=== PATIENT | female | born 1945 | race Caucasian/White ===

== ENCOUNTER 2018-10-08 09:08 | Inpatient (IN) ==
[2018-10-08] MEDS ORDERED: IOPAMIDOL 100 ML BOTTLE IV ONE (09:09)
[2018-10-08] MEDS ORDERED: 0.9 % SODIUM CHLORIDE 1,000 ML IV ONE (09:29)
[2018-10-08] MEDS ORDERED: ONDANSETRON 4 MG/2 ML VIAL IV ONE (09:38)
[2018-10-08] MEDS ORDERED: HYDROmorphone 2 MG/ML VIAL IV PRN (09:52)
--- NOTE | 2018-10-08 09:52 | Emergency Department Note ---
Abdominal Pain HPI - General Chief Complaint: Abdominal Pain Stated Complaint: abd pain Time Seen by Provider: 10/08/18 09:37 Source: patient Mode of arrival: ambulatory Limitations: no limitations - History of Present Illness HPI Narrative: This patient began having some abdominal pain on Saturday and it became so caused some nausea and dry heaves. She has had slight diarrhea but has not been prominent. The pain has continued though is a little bit less now. She says the pain is constant but it does sound like it exacerbates at times. It is césar ewhat diffuse but perhaps more prominent in the pelvic region. Has never had any significant bowel problems in the past MD Complaint: abdominal pain Onset (ago): day(s) Consistency: constant Location: diffuse Severity: moderate Quality: cramping Radiation: none - Related Data Home Medications Medication Instructions Recorded Confirmed Aspirin [Lo-Dose Aspirin EC] 81 mg PO DAILY 10/08/18 10/08/18 Allergies Allergy/AdvReac Type Severity Reaction Status Date / Time hydromorphone [From Dilaudid] Allergy Unknown Nausea Verified 10/08/18 11:02 Review of Systems All systems ED: reviewed and negative except as stated. Abdominal Pain PMH - Past Medical History Medical history: Reports: no medical history Surgical history ED: Reports: hysterectomy - Social History Smoking status: Never smoker Physical Exam Limitations: no limitations General appearance: alert Head: atraumatic Eye: Present: normal appearance ENT: normal exam Neck: Present: normal inspection Chest: Present: normal inspection Respiratory: Present: normal lung sounds bilaterally Cardiovascular: Present: regular rate, normal rhythm, normal heart sounds Abdominal: Present: soft, tenderness, normal bowel sounds. Absent: distention Abdominal tenderness: Present: diffuse, moderate Neurological: Present: alert Psychiatric: Present: normal affect Skin: Present: warm, dry, intact Course Vital Signs Temperature 97.5 F 10/08/18 09:09 Pulse Rate 96 H 10/08/18 09:09 Respiratory Rate 16 10/08/18 09:09 Blood Pressure 135/79 10/08/18 09:09 Pulse Oximetry (%) 96 10/08/18 09:09 Temperature 97.5 F 10/08/18 09:09 Pulse Rate 81 10/08/18 11:34 Respiratory Rate 20 10/08/18 11:34 Blood Pressure 167/94 10/08/18 11:34 Pulse Oximetry (%) 97 10/08/18 11:34 Abdominal Pain - MDM Narrative Medical decision making narrative: Patient CT scan shows diverticulitis in the sigmoid region with a pelvic abscess that is loculated and will require drainage. She also has some inflammation in the ileum which is unexplained. No history of inflammatory bowel disease in the past. I discussed case with Dr. Oneill the general surgeon and she will be admitted to the hospital. - Lab Data Lab results reviewed: Yes I reviewed the patient's lab results. Result diagrams: 10/08/18 09:42 10/08/18 10:25 Lab Results 10/08/18 10/08/18 10/08/18 Range/Units 09:42 09:42 09:42 WBC 18.7 H (4.5-11.0) K/mcL RBC 4.97 (4.00-5.20) M/mcL Hgb 14.4 (12.0-15.0) g/dL Hct 45.0 (36.0-48.0) % MCV 90.6 (80.0-100.0) fL MCH 29.1 (26.0-34.0) pg MCHC 32.1 (31.0-36.0) g/dL RDW 12.7 (11.5-14.5) % Plt Count 226 (140-440) K/mcL MPV 10.5 H (7.4-10.4) fL Gran % 88.4 H (38.0-78.0) % Lymph % (Auto) 5.9 L (15.5-49.0) % [place] % (Auto) 5.3 (1.0-12.0) % Eos % (Auto) 0.1 (0.0-7.0) % Baso % (Auto) 0.3 (0.0-2.0) % Gran # 16.6 H (1.8-8.0) K/mcL Lymph # (Auto) 1.1 L (1.5-4.8) K/mcL [place] # (Auto) 1.0 H (0.1-0.9) K/mcL Eos # (Auto) 0 (0.0-0.7) K/mcL Baso # (Auto) 0.1 (0.0-0.3) K/mcL Sodium TNP Potassium TNP Chloride TNP Carbon Dioxide TNP Anion Gap TNP BUN TNP Creatinine TNP GFR Calculation TNP Glucose TNP Calcium TNP Total Bilirubin TNP AST TNP ALT TNP Alkaline Phosphatase TNP Total Protein TNP Albumin TNP Globulin TNP Albumin/Globulin Ratio TNP Lipase 10 (7-60) U/L Urine Color Urine Appearance Urine pH (5.0-9.0) Ur Specific [place] (1.000-1.035) Urine Protein (NEG) mg/dL Urine Glucose (UA) (NEG) mg/dL Urine Ketones (NEG) mg/dL Urine Occult Blood (<0.03) mg/dL Urine Nitrate (NEG) Urine Bilirubin (NEG) mg/dL Urine Urobilinogen (NEG) mg/dL Ur Leukocyte Esterase (NEG) /uL Urine RBC (0-1) /hpf Urine WBC (0-4) /hpf Ur Squamous Epith Cells (0-4) /hpf Urine Bacteria (0) /hpf Hyaline Casts (0-2) /lpf Urine Mucus (0) /hpf Ur Culture Indicated? 10/08/18 10/08/18 Range/Units 10:25 10:39 WBC (4.5-11.0) K/mcL RBC (4.00-5.20) M/mcL Hgb (12.0-15.0) g/dL Hct (36.0-48.0) % MCV (80.0-100.0) fL MCH (26.0-34.0) pg MCHC (31.0-36.0) g/dL RDW (11.5-14.5) % Plt Count (140-440) K/mcL MPV (7.4-10.4) fL Gran % (38.0-78.0) % Lymph % (Auto) (15.5-49.0) % [place] % (Auto) (1.0-12.0) % Eos % (Auto) (0.0-7.0) % Baso % (Auto) (0.0-2.0) % Gran # (1.8-8.0) K/mcL Lymph # (Auto) (1.5-4.8) K/mcL [place] # (Auto) (0.1-0.9) K/mcL Eos # (Auto) (0.0-0.7) K/mcL Baso # (Auto) (0.0-0.3) K/mcL Sodium 140 Potassium 3.5 Chloride 100 Carbon Dioxide 25 Anion Gap 15.0 BUN 26 H Creatinine 1.1 GFR Calculation 50 Glucose 119 H Calcium 9.7 Total Bilirubin 0.5 AST 10 ALT 10 Alkaline Phosphatase 81 Total Protein 7.7 Albumin 3.4 Globulin 4.3 H Albumin/Globulin Ratio 0.8 L Lipase (7-60) U/L Urine Color Yellow Urine Appearance Hazy Urine pH 5.0 (5.0-9.0) Ur Specific [place] 1.023 (1.000-1.035) Urine Protein 100 A (NEG) mg/dL Urine Glucose (UA) Negative (NEG) mg/dL Urine Ketones 20 A (NEG) mg/dL Urine Occult Blood 0.03 A (<0.03) mg/dL Urine Nitrate Neg (NEG) Urine Bilirubin Neg (NEG) mg/dL Urine Urobilinogen Neg (NEG) mg/dL Ur Leukocyte Esterase 25 A (NEG) /uL Urine RBC 1 (0-1) /hpf Urine WBC 13 H (0-4) /hpf Ur Squamous Epith Cells 14 H (0-4) /hpf Urine Bacteria 0 (0) /hpf Hyaline Casts 36 H (0-2) /lpf Urine Mucus Many A (0) /hpf Ur Culture Indicated? No - Radiology Data Radiology results reviewed: Yes I reviewed the patient's radiology results. Disposition Pt seen by DIRECTOR INDUSTRIAL RELATIONS/PA only: No Clinical Impression: Diverticulitis Disposition: Xfer As Inpt ([facility]) Condition: Good Time of Disposition: 12:02
[2018-10-08] MEDS ORDERED: KETOROLAC 30 MG/ML VIAL IV ONE (10:03)
[2018-10-08 10:08] LABS: Basophils # (Auto) 0.1 K/mcL (0.0-0.3); Basophils % (Auto) 0.3 % (0.0-2.0); Eosinophils # (Auto) 0 K/mcL (0.0-0.7); Eosinophils % (Auto) 0.1 % (0.0-7.0); Granulocytes % (Auto) 88.4 % (38.0-78.0); Lymphocytes # (Auto) 1.1 K/mcL (1.5-4.8); Lymphocytes % (Auto) 5.9 % (15.5-49.0); Mean Cell Volume 90.6 fL (80.0-100.0); Mean Corpuscular HGB Conc 32.1 g/dL (31.0-36.0); Monocytes % (Auto) 5.3 % (1.0-12.0); Platelet Count 226 K/mcL (140-440); RBC 4.97 M/mcL (4.00-5.20); Red Cell Distribution Width 12.7 % (11.5-14.5)
[2018-10-08 10:25] LABS: Lipase 10 U/L (7-60)
[2018-10-08 11:07] LABS: ALT/SGPT 10 U/l (0-40); Albumin 3.4 gm/dL (3.2-5.2); Albumin/Globulin Ratio 0.8 (1.0-2.3); Alkaline Phosphatase 81 U/L (39-117); Blood Urea Nitrogen 26 mg/dl (8-23)
[2018-10-08 11:37] LABS: Appearance,Urine HAZY; Bacteria,Urine 0 /hpf (0); Bilirubin,Urine NEG (NEG); Color,Urine YELLOW; Glucose,Urine (UA) NEGATIVE (NEG); Leukocyte Esterase,Urine 25 /uL (NEG); Mucus,Urine MANY /hpf (0); Protein,Urine 100 mg/dL (NEG); Specific Gravity,Urine 1.023 (1.000-1.035); Urine Blood 0.03 mg/dL (<0.03); Urine Hyaline Cast 36 /lpf (0-2); Urine RBC 1 /hpf (0-1); Urine Squamous Epithelial Cell 14 /hpf (0-4); Urine WBC 13 /hpf (0-4); Urobilinogen,Urine NEG (NEG)
[2018-10-08] MEDS ORDERED: metroNIDAZOLE 500 MG/100 ML BAG IV ONE (11:59)
[2018-10-08] MEDS ORDERED: LEVOFLOXACIN 750 MG/150 ML BAG IV ONE (11:59)
--- NOTE | 2018-10-08 12:06 | Cat Scan Report ---
CLINICAL INFORMATION: Diffuse abdominal pain COMPARISON: None. TECHNIQUE: Following oral contrast and the injection of intravenous contrast the patient was scanned during the portal venous phase from the diaphragm through the symphysis pubis. Sagittal and coronal reformats were created.. The radiation exposure was limited using dose reduction technology. FINDINGS: The lung bases are clear. The heart is normal in size. The liver is normal in size. There is a small calcified granuloma in the left lobe. The remainder the liver is normal. The spleen is normal in size and homogeneous. There are no gallstones and the bile ducts are nondilated. No mass or inflammation are present in the pancreas. There is a low-attenuation nodule in the right adrenal gland which measures 2.0 x 2.2 cm. It has intermediate density. I have no prior study for comparison. The left adrenal gland is normal. The kidneys are normal in size shape and contour and there is no kidney stone or hydronephrosis. The aorta is normal caliber. There are few scattered plaques along the wall of the distal aorta and iliac arteries. The oral contrast has passed through stomach and small bowel and colon to the rectum without obstruction. There are several diverticula in the sigmoid colon. The wall of the distal sigmoid colon is abnormally thickened and inflamed and there is stranding in the surrounding fat. Posterior to this inflamed segment of sigmoid colon there is a multiloculated complex fluid collection. The component posterior to the sigmoid measures 3.2 x 8.5 cm. There is a second component located more superiorly and laterally which measures 2.1 x 3.6 cm. There is a third component located more anteriorly to the right of midline in the pelvis which contains a few small bubbles of air and measures 2.9 x 3.6 cm. Superior and lateral to the inflamed sigmoid colon there is a segment of inflamed distal ileum. This is causing significant narrowing of the lumen but not obstruction. The terminal ileum is normal. This inflamed segment of ileum measures approximately 8 cm in length. There is no evidence of thrombosis or stenosis of the superior nor inferior mesenteric arteries or veins. No free intraperitoneal air is present. There is no extravasation of contrast from the lumen of the bowel. IMPRESSION: Diverticulitis of the distal sigmoid colon Inflammation of the distal ileum. This is not directly contiguous with the inflamed sigmoid colon and is suggestive of inflammatory bowel disease Multiloculated abscess deep in the pelvis with a large collection of fluid located posterior to the sigmoid colon Right adrenal mass. 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 Follow-up at a later date is suggested. Dr. Frausto was called with the results Interpreted and Authenticated by: Oswald Brenner 10/08/18
[2018-10-08] MEDS ORDERED: MEPERIDINE 25 MG/ML SYRINGE IV PRN (14:46)
[2018-10-08] MEDS ORDERED: ONDANSETRON 4 MG/2 ML VIAL IV PRN (14:46)
--- NOTE | 2018-10-08 15:01 | General Surg History&Physical ---
History of Present Illness Patient information: Note initiated : 10/08/18 at 2:58 pm Service Date, if different from initiated Date: [] Patient: Shilpa Soto a 73 y/o F admitted on 10/08/18 for Abd Pain. Chief Complaint: [abdominal pain nausea and vomiting] HPI: Ms. Soto is a 73 year old F admitted with perforated diverticulitis with abscess. The patient had onset of severe abdominal pain in her mid abdomen and hypogastric region on mid day on Saturday. This was followed by many episodes of nausea with vomiting which lasted for many hours. She continued to be symptomatic until she finally relented and came to the emergency room. She states that she took Pepto-Bismol but this was not effective. She had sweats but no fever or chills. The pain radiated through to her back. She did not have any bladder symptoms. Evaluation in the emergency room revealed white blood count of 18.7 BUN [address] shows acute diverticulitis with inflammatory changes involving the small bowel and colon. She also has 3 large collections of developing abscesses which are not amenable to percutaneous drainage. She is advised that she will need urgent sigmoid resection with drainage of the pelvic abscesses and colostomy. She agrees to this method of treatment. Review of Systems - Constitutional malaise, no fever(s) - EENT Nose, mouth and throat: no dizziness, no neck pain - Cardiovascular no chest pain with activity, no dyspnea on exertion, no paroxysmal nocturnal dyspnea, no rapid heart rate, no syncope - Respiratory no cough, no dyspnea on exertion, no wheezing - Gastrointestinal abdominal pain, bloating, change in stool character, diarrhea, early satiety, heartburn, loose stools, nausea, vomiting - Genitourinary Genitourinary: no dysuria, no nocturia, no urinary frequency, no urinary hesitancy, no urinary incontinence, no urinary urgency - Musculoskeletal no arthralgias, no back pain, no joint swelling, no neck pain - Integumentary no new lesions, no pruritus, no rash - Neurological no abnormal hearing, no confusion, no headache(s), no memory loss, no syncope, no vertigo - Psychiatric no anxiety, no depression - Endocrine no change in body appearance, no excessive sweating, no fatigue, no palpitations - Hematologic/Lymphatic no easy bleeding, no easy bruising, no lymphadenopathy - Allergic/Immunologic no tongue swelling, no throat swelling, no uticaria, no wheezing, no lip swelling Past History Past medical history: No chronic medical illnesses Past surgical history: Abdominal hysterectomy with bilateral salpingo-oophorectomy Past family history: Mother age 45 due to stroke Father due to an injury in Brother with diabetes mellitus and heart disease 2 sisters without medical illness Past social history: Never tobacco Habits alcohol Never drugs Medications and Allergies Home Medications Medication Instructions Recorded Confirmed Type Aspirin [Lo-Dose Aspirin EC] 81 mg PO DAILY 10/08/18 10/08/18 History Allergies Allergy/AdvReac Type Severity Reaction Status Date / Time hydromorphone [From Dilaudid] Allergy Unknown Nausea Verified 10/08/18 11:02 Exam Temp Pulse Resp BP Pulse Ox 98.0 F 77 16 135/79 100 10/08/18 13:14 10/08/18 13:14 10/08/18 13:14 10/08/18 13:14 10/08/18 13:14 - General physical appearance well developed, well nourished, no distress - Eyes PERRL, normal ocular movement - ENT normal pinna, normal nares, normal mucosa, no hearing loss, no congestion - Head Head exam IM: Present: atraumatic, normal inspection, normocephalic - Neck no masses, no bruits, trachea midline, no lymphadenopathy, no venous distension - Cardiovascular Cardiovascular exam IM: Present: normal rate and rhythm, RRR, +S1, +S2. Absent: irregular rhythm, JVD, systolic murmur - Respiratory normal expansion, normal respiratory effort, clear to auscultation - Abdomen Abdomen: Present: soft, non tender, tender (tenderness in the hypogastrium and both lower quadrants; moderate distention; active bowel sounds), bowel sounds Hernia: Present: none - Genitourinary Present: normal external genitalia - Integumentary Present: no rash, no growths, no abnormal pigmentation - Neurologic Present: normal coordination, normal sensation - Musculoskeletal Present: normal gait, normal posture - Psychiatric Present: oriented to time, oriented to person, oriented to place, speech is normal, memory intact Assessment and Plan (1) Diverticulitis of intestine with perforation and abscess with bleeding Zosyn 3.375 g IV every 6 Metronidazole 500 mg IV every 6 Sigmoid colectomy with colostomy on Saturday Status: Acute (2) Acute prerenal azotemia Vigorous IV hydration Status: Acute
[2018-10-08] MEDS: 0.9 % SODIUM CHLORIDE 1,000 ML IV SCH (16:18)
[2018-10-08] MEDS: PIPERACILLIN SODIUM/TAZOBACTAM 3.375 GM in DEXTROSE 5% IN WATER 50 ML IV SCH ×3 (16:19→23:26)
--- NOTE | 2018-10-08 16:19 | XRay Report ---
HISTORY: Preop FINDINGS: The lungs are clear. The right diaphragm is mildly elevated. The heart size, pulmonary vasculature, mediastinum and suzy are normal. Mild arthritis is present in the acromioclavicular joints, right worse than left. No free intra-abdominal air is present. IMPRESSION: No acute abnormality Interpreted and Authenticated by: Oswald Brenner 10/08/18
[2018-10-08] MEDS: PANTOPRAZOLE 40 MG VIAL IV SCH (18:48)
[2018-10-08] MEDS: metroNIDAZOLE 500 MG/100 ML BAG IV SCH (18:49)
[2018-10-09] MEDS: metroNIDAZOLE 500 MG/100 ML BAG IV SCH ×3 (00:09→13:40)
[2018-10-09] MEDS: 0.9 % SODIUM CHLORIDE 1,000 ML IV SCH ×4 (03:04→17:40)
[2018-10-09] MEDS: ACETAMINOPHEN 1,000 MG/100 ML BOTTLE IV PRN ×3 (03:08→20:27)
[2018-10-09 05:12] LABS: Basophils # (Auto) 0 K/mcL (0.0-0.3); Basophils % (Auto) 0 % (0.0-2.0); Eosinophils # (Auto) 0 K/mcL (0.0-0.7); Eosinophils % (Auto) 0.2 % (0.0-7.0); Granulocytes % (Auto) 85.4 % (38.0-78.0); Lymphocytes # (Auto) 0.9 K/mcL (1.5-4.8); Lymphocytes % (Auto) 6.6 % (15.5-49.0); Mean Cell Volume 90.9 fL (80.0-100.0); Mean Corpuscular HGB Conc 32.6 g/dL (31.0-36.0); Monocytes % (Auto) 7.8 % (1.0-12.0); Platelet Count 195 K/mcL (140-440); RBC 3.82 M/mcL (4.00-5.20); Red Cell Distribution Width 12.4 % (11.5-14.5)
[2018-10-09 05:33] LABS: ALT/SGPT 9 U/l (0-40); Albumin 2.7 gm/dL (3.2-5.2); Albumin/Globulin Ratio 0.8 (1.0-2.3); Alkaline Phosphatase 104 U/L (39-117); Bilirubin,Direct < 0.2 mg/dL (0.0-0.3); Blood Urea Nitrogen 18 mg/dl (8-23); Gamma Glutamyl Transpeptidase 15 U/L (5-36)
[2018-10-09] MEDS: PIPERACILLIN SODIUM/TAZOBACTAM 3.375 GM in DEXTROSE 5% IN WATER 50 ML IV SCH ×4 (05:34→18:34)
[2018-10-09] MEDS: PANTOPRAZOLE 40 MG VIAL IV SCH ×2 (08:47→15:59)
[2018-10-09] MEDS ORDERED: POTASSIUM CHLORIDE 40 MEQ in DEXTROSE 5% IN WATER 500 ML IV ONE (16:45)
--- NOTE | 2018-10-09 16:46 | General Surgery Progress Note ---
Subjective Patient reports: feels better, still having pain, pain is less, flatus, diarrhea, nausea, afebrile Narrative: Note initiated : 10/09/18 at 4:45 pm Service Date, if different from initiated Date: [] Patient: Shilpa Soto 73 y/o F admitted on 10/08/18 for Abd Pain. Chief Complaint: [] Objective Temp Pulse Resp BP Pulse Ox 98.8 F 81 20 154/79 98 10/09/18 15:43 10/09/18 03:10 10/09/18 15:43 10/09/18 15:43 10/09/18 15:43 - Additional Data Intake & Output - Last 24 hours: Intake & Output 10/07/18 10/08/18 10/09/18 10/10/18 05:59 05:59 05:59 05:59 Intake Total 2857 1390 Output Total 1350 450 Balance 1507 940 Weight 195 lb 195 lb - General physical appearance well developed, well nourished, no distress - Eyes PERRL, normal ocular movement - ENT normal pinna, normal nares, normal mucosa, no hearing loss, no congestion - Neck no masses, no bruits, trachea midline, no lymphadenopathy, no venous distension - Respiratory normal expansion, normal respiratory effort, clear to auscultation - Cardiovascular Cardiovascular exam: Present: normal rate and rhythm, RRR, +S1, +S2. Absent: JVD, tachycardia - Abdomen tender, distended (patient has mild abdominal distention; she has good active bowel sounds; there is tenderness to palpation in the hypogastrium in both lower quadrants) - Integumentary no rash, no growths, no abnormal pigmentation - Neurologic normal coordination, normal sensation - Musculoskeletal normal gait, normal posture - Psychiatric oriented to time, oriented to person, oriented to place, speech is normal, memory intact - Labs 10/09/18 03:55 10/09/18 03:55 Diabetes panel 10/09/18 Range/Units 03:55 Sodium 139 (133-145) mmol/L Potassium 3.3 (3.3-5.1) mmol/L Chloride 104 (96-108) mmol/L Carbon Dioxide 22 (22-30) mmol/L BUN 18 (8-23) mg/dl Creatinine 1.0 (0.6-1.1) mg/dl Glucose 92 (70-105) mg/dL Calcium 9.0 (8.6-10.4) mg/dl AST 13 (0-37) U/l ALT 9 (0-40) U/l Alkaline Phosphatase 104 (39-117) U/L Total Protein 6.3 (5.9-8.4) gm/dL Albumin 2.7 L (3.2-5.2) gm/dL Triglycerides 85 (<150) mg/dl Calcium panel 10/09/18 Range/Units 03:55 Calcium 9.0 (8.6-10.4) mg/dl Phosphorus 2.8 (2.7-4.5) mg/dL Albumin 2.7 L (3.2-5.2) gm/dL Pituitary panel 10/09/18 Range/Units 03:55 Sodium 139 (133-145) mmol/L Potassium 3.3 (3.3-5.1) mmol/L Chloride 104 (96-108) mmol/L Carbon Dioxide 22 (22-30) mmol/L BUN 18 (8-23) mg/dl Creatinine 1.0 (0.6-1.1) mg/dl Glucose 92 (70-105) mg/dL Calcium 9.0 (8.6-10.4) mg/dl Adrenal panel 10/09/18 Range/Units 03:55 Sodium 139 (133-145) mmol/L Potassium 3.3 (3.3-5.1) mmol/L Chloride 104 (96-108) mmol/L Carbon Dioxide 22 (22-30) mmol/L BUN 18 (8-23) mg/dl Creatinine 1.0 (0.6-1.1) mg/dl Glucose 92 (70-105) mg/dL Calcium 9.0 (8.6-10.4) mg/dl Total Bilirubin 0.4 (0.0-1.0) mg/dL AST 13 (0-37) U/l ALT 9 (0-40) U/l Alkaline Phosphatase 104 (39-117) U/L Total Protein 6.3 (5.9-8.4) gm/dL Albumin 2.7 L (3.2-5.2) gm/dL Assessment and Plan (1) Diverticulitis of intestine with perforation and abscess with bleeding Status: Acute Assessment and plan: Patient is clinically stable. She is counseled for sigmoid colectomy with colostomy tomorrow. Current Visit: Yes (2) Acute prerenal azotemia Status: Resolved Current Visit: Yes - Time Spent With Patient Total time spent is greater than 50% in coordination of care (as documented) at patient's floor/unit and/or counseling patient:
[2018-10-10] MEDS: PIPERACILLIN SODIUM/TAZOBACTAM 3.375 GM in DEXTROSE 5% IN WATER 50 ML IV SCH ×6 (00:16→23:17)
[2018-10-10] MEDS: 0.9 % SODIUM CHLORIDE 1,000 ML IV SCH ×6 (04:21→20:30)
[2018-10-10] MEDS: ACETAMINOPHEN 1,000 MG/100 ML BOTTLE IV PRN ×2 (05:09→18:06)
[2018-10-10 06:36] LABS: Basophils # (Auto) 0 K/mcL (0.0-0.3); Basophils % (Auto) 0 % (0.0-2.0); Eosinophils # (Auto) 0.1 K/mcL (0.0-0.7); Eosinophils % (Auto) 0.8 % (0.0-7.0); Granulocytes % (Auto) 81.4 % (38.0-78.0); Lymphocytes % (Auto) 8.8 % (15.5-49.0); Mean Cell Volume 90.8 fL (80.0-100.0); Mean Corpuscular HGB Conc 32.1 g/dL (31.0-36.0); Monocytes # (Auto) 1.1 K/mcL (0.1-0.9); Platelet Count 199 K/mcL (140-440); RBC 3.91 M/mcL (4.00-5.20)
[2018-10-10 07:02] LABS: ALT/SGPT 12 U/l (0-40); Albumin 2.7 gm/dL (3.2-5.2); Albumin/Globulin Ratio 0.8 (1.0-2.3); Alkaline Phosphatase 103 U/L (39-117); Bilirubin,Direct < 0.2 mg/dL (0.0-0.3); Blood Urea Nitrogen 11 mg/dl (8-23); Gamma Glutamyl Transpeptidase 24 U/L (5-36); Uric Acid 3.2 mg/dL (2.5-8.0)
[2018-10-10] MEDS: PANTOPRAZOLE 40 MG VIAL IV SCH ×2 (08:04→18:11)
[2018-10-10] MEDS ORDERED: PIPERACILLIN SODIUM/TAZOBACTAM 3.375 GM in DEXTROSE 5% IN WATER 50 ML IV ONE (08:30)
[2018-10-10] MEDS ORDERED: SCOPOLAMINE 1 PATCH PATCH TOPICAL ONE (08:34)
[2018-10-10] MEDS ORDERED: metroNIDAZOLE 500 MG/100 ML BAG IV ONE (08:43)
[2018-10-10] MEDS ORDERED: MIDAZOLAM 5 MG/5 ML VIAL IV ONE (09:00)
[2018-10-10] MEDS ORDERED: diphenhydrAMINE 50 MG/ML VIAL IV ONE (09:00)
[2018-10-10] MEDS ORDERED: KETAMINE 100 MG/ML ML IV ONE (09:00)
[2018-10-10] MEDS ORDERED: NEOSTIGMINE 1 MG/ML VIAL IV ONE (09:00)
[2018-10-10] MEDS ORDERED: LIDOCAINE HCL/PF 100 MG/5 ML SYRINGE IV ONE (09:00)
[2018-10-10] MEDS ORDERED: ROCURONIUM 10 MG/ML ML IV ONE (09:00)
[2018-10-10] MEDS ORDERED: DEXAMETHASONE 10 MG/ML VIAL IV ONE (09:00)
[2018-10-10] MEDS ORDERED: ESMOLOL 100 MG/10 ML VIAL IV ONE (09:00)
[2018-10-10] MEDS ORDERED: FAMOTIDINE/PF 20 MG/2 ML VIAL IV ONE (09:00)
[2018-10-10] MEDS ORDERED: fentaNYL 250 MCG/5 ML VIAL IV ONE (09:00)
[2018-10-10] MEDS ORDERED: GLYCOPYRROLATE 0.2 MG/ML VIAL IV ONE (09:00)
[2018-10-10] MEDS ORDERED: ONDANSETRON 4 MG/2 ML VIAL IV ONE (09:00)
[2018-10-10] MEDS ORDERED: PROPOFOL 200 MG/20 ML VIAL IV ONE (09:00)
[2018-10-10] MEDS ORDERED: hydrALAZINE 20 MG/ML VIAL IV ONE (09:00)
[2018-10-10] MEDS ORDERED: NALOXONE HCL 0.4 MG/ML VIAL IV PRN (10:02)
[2018-10-10] MEDS ORDERED: FLUMAZENIL 0.1 MG/ML ML IV PRN (10:02)
[2018-10-10] MEDS ORDERED: BENZOCAINE/MENTHOL 1 LOZENGE PO PRN (10:02)
[2018-10-10] MEDS ORDERED: ONDANSETRON 4 MG/2 ML VIAL IV PRN ×2 (10:02→13:25)
[2018-10-10] MEDS ORDERED: IPRATROPIUM/ALBUTEROL 3 ML AMPUL.NEB NEB PRN (10:02)
[2018-10-10] MEDS ORDERED: LACTATED RINGERS 250 ML IV PRN (10:02)
[2018-10-10] MEDS ORDERED: ACETAMINOPHEN 1,000 MG/100 ML BOTTLE IV ONE (10:02)
[2018-10-10] MEDS ORDERED: fentaNYL 100 MCG/2 ML VIAL IV PRN (10:02)
[2018-10-10] MEDS ORDERED: PROMETHAZINE 25 MG/ML VIAL IV PRN (10:02)
[2018-10-10] MEDS ORDERED: METHOCARBAMOL 1,000 MG/10 ML VIAL IV PRN (10:02)
[2018-10-10] MEDS ORDERED: MEPERIDINE 25 MG/ML SYRINGE IV PRN (10:02)
[2018-10-10] MEDS ORDERED: LACTATED RINGERS 1,000 ML IV SCH (10:15)
--- NOTE | 2018-10-10 11:45 | Brief Operative Note ---
Date of procedure: 10/10/18 Pre-op diagnosis: diverticulitis with multiple pelvic abscesses Post-op diagnosis: other (diverticuklitis with multiple pelvic abscess;acute appendicitis) Procedure: sigmoid colectomy and appendectomy with colostomy Grafts/Implants: No (mikal drain x2) Anesthesia: GETA Findings: major inflammation of sigmoid colon extending into pelvis with large volume abscesses x 3 with phlegmon involving colon small bowel bladder and rectum;appendix in middle of abscess cavity with possible perforation;unsure if inflammation was primary or secondary Complications: none Surgeon: Jakob Oneill Estimated blood loss (cc): 100 Specimens Removed/Pathology: other (sigmoid colon;appendix) Condition: stable Disposition: PACU
[2018-10-10] MEDS: 0.9 % SODIUM CHLORIDE 10 ML SYRINGE IV SCH ×3 (14:37→21:35)
[2018-10-10] MEDS: MEPERIDINE 25 MG/ML SYRINGE IV PRN ×3 (14:53→23:17)
[2018-10-10] MEDS: BENZOCAINE 1 SPRAY BOTTLE TOPICAL PRN ×2 (15:10→18:07)
[2018-10-11] MEDS: MEPERIDINE 25 MG/ML SYRINGE IV PRN ×5 (03:14→20:52)
[2018-10-11] MEDS: 0.9 % SODIUM CHLORIDE 1,000 ML IV SCH ×3 (03:14→19:16)
[2018-10-11] MEDS: PIPERACILLIN SODIUM/TAZOBACTAM 3.375 GM in DEXTROSE 5% IN WATER 50 ML IV SCH ×3 (05:15→17:47)
[2018-10-11 05:20] LABS: Basophils # (Auto) 0 K/mcL (0.0-0.3); Basophils % (Auto) 0 % (0.0-2.0); Eosinophils # (Auto) 0 K/mcL (0.0-0.7); Eosinophils % (Auto) 0.1 % (0.0-7.0); Granulocytes % (Auto) 83.2 % (38.0-78.0); Lymphocytes % (Auto) 6.9 % (15.5-49.0); Mean Corpuscular HGB Conc 32.5 g/dL (31.0-36.0); Monocytes # (Auto) 1.5 K/mcL (0.1-0.9); Monocytes % (Auto) 9.8 % (1.0-12.0); Platelet Count 209 K/mcL (140-440); RBC 3.96 M/mcL (4.00-5.20); Red Cell Distribution Width 12.8 % (11.5-14.5)
[2018-10-11 05:42] LABS: ALT/SGPT 11 U/l (0-40); Albumin 2.3 gm/dL (3.2-5.2); Albumin/Globulin Ratio 0.6 (1.0-2.3); Alkaline Phosphatase 81 U/L (39-117); Bilirubin,Direct < 0.2 mg/dL (0.0-0.3); Blood Urea Nitrogen 17 mg/dl (8-23); Gamma Glutamyl Transpeptidase 23 U/L (5-36); Uric Acid 3.7 mg/dL (2.5-8.0)
[2018-10-11] MEDS: 0.9 % SODIUM CHLORIDE 10 ML SYRINGE IV SCH ×2 (05:46→13:40)
[2018-10-11] MEDS: ACETAMINOPHEN 1,000 MG/100 ML BOTTLE IV PRN ×3 (05:46→19:31)
[2018-10-11] MEDS: PANTOPRAZOLE 40 MG VIAL IV SCH ×2 (07:50→17:46)
--- NOTE | 2018-10-11 12:38 | General Surgery Progress Note ---
Subjective Patient reports: feels better, pain is less, no flatus, afebrile Narrative: Note initiated : 10/11/18 at 12:36 pm Service Date, if different from initiated Date: [] Patient: Shilpa Soto 73 y/o F admitted on 10/08/18 for Abd Pain. Chief Complaint: [patient is doing well in the postoperative period. Her pain is well controlled. She denies nausea. White blood count 15,000; potassium 3.3] Objective Temp Pulse Resp BP Pulse Ox 98.5 F 84 20 153/76 93 10/11/18 12:17 10/11/18 04:00 10/11/18 12:17 10/11/18 12:17 10/11/18 12:17 - Additional Data Intake & Output - Last 24 hours: Intake & Output 10/09/18 10/10/18 10/11/18 10/12/18 05:59 05:59 05:59 05:59 Intake Total 2857 2310 5452 1000 Output Total 1350 2350 1675 Balance 1507 -40 3777 1000 Weight 195 lb 190 lb 6.4 oz 197 lb - General physical appearance well developed, well nourished, no distress - Eyes PERRL, normal ocular movement - ENT normal pinna, normal nares, normal mucosa, no hearing loss, no congestion - Neck no masses, no bruits, trachea midline, no lymphadenopathy, no venous distension - Respiratory normal expansion, normal respiratory effort, clear to auscultation - Cardiovascular Cardiovascular exam: Present: normal rate and rhythm, RRR, +S1, +S2. Absent: JVD, tachycardia - Abdomen tender (moderate incisional tenderness), bowel sounds (present), surgical scars (none), masses (none) - Integumentary no rash, no growths, no abnormal pigmentation - Neurologic normal coordination, normal sensation - Musculoskeletal normal gait, normal posture - Psychiatric oriented to time, oriented to person, oriented to place, speech is normal, memory intact - Labs 10/11/18 03:50 10/11/18 03:50 Diabetes panel 10/11/18 Range/Units 03:50 Sodium 140 (133-145) mmol/L Potassium 3.3 (3.3-5.1) mmol/L Chloride 106 (96-108) mmol/L Carbon Dioxide 21 L (22-30) mmol/L BUN 17 (8-23) mg/dl Creatinine 0.8 (0.6-1.1) mg/dl Glucose 114 H (70-105) mg/dL Calcium 8.7 (8.6-10.4) mg/dl AST 12 (0-37) U/l ALT 11 (0-40) U/l Alkaline Phosphatase 81 (39-117) U/L Total Protein 5.9 (5.9-8.4) gm/dL Albumin 2.3 L (3.2-5.2) gm/dL Triglycerides 82 (<150) mg/dl Calcium panel 10/11/18 Range/Units 03:50 Calcium 8.7 (8.6-10.4) mg/dl Phosphorus 3.6 (2.7-4.5) mg/dL Albumin 2.3 L (3.2-5.2) gm/dL Pituitary panel 10/11/18 Range/Units 03:50 Sodium 140 (133-145) mmol/L Potassium 3.3 (3.3-5.1) mmol/L Chloride 106 (96-108) mmol/L Carbon Dioxide 21 L (22-30) mmol/L BUN 17 (8-23) mg/dl Creatinine 0.8 (0.6-1.1) mg/dl Glucose 114 H (70-105) mg/dL Calcium 8.7 (8.6-10.4) mg/dl Adrenal panel 10/11/18 Range/Units 03:50 Sodium 140 (133-145) mmol/L Potassium 3.3 (3.3-5.1) mmol/L Chloride 106 (96-108) mmol/L Carbon Dioxide 21 L (22-30) mmol/L BUN 17 (8-23) mg/dl Creatinine 0.8 (0.6-1.1) mg/dl Glucose 114 H (70-105) mg/dL Calcium 8.7 (8.6-10.4) mg/dl Total Bilirubin 0.2 (0.0-1.0) mg/dL AST 12 (0-37) U/l ALT 11 (0-40) U/l Alkaline Phosphatase 81 (39-117) U/L Total Protein 5.9 (5.9-8.4) gm/dL Albumin 2.3 L (3.2-5.2) gm/dL Assessment and Plan (1) Diverticulitis of intestine with perforation and abscess with bleeding Status: Acute Assessment and plan: Patient is clinically stable. we'll continue present therapy Current Visit: Yes (2) Acute prerenal azotemia Status: Resolved Current Visit: Yes - Time Spent With Patient Total time spent is greater than 50% in coordination of care (as documented) at patient's floor/unit and/or counseling patient:
[2018-10-12] MEDS: MEPERIDINE 25 MG/ML SYRINGE IV PRN ×4 (03:31→21:46)
[2018-10-12] MEDS: 0.9 % SODIUM CHLORIDE 1,000 ML IV SCH ×5 (03:31→18:55)
[2018-10-12] MEDS: PIPERACILLIN SODIUM/TAZOBACTAM 3.375 GM in DEXTROSE 5% IN WATER 50 ML IV SCH ×5 (05:48→23:33)
[2018-10-12] MEDS: 0.9 % SODIUM CHLORIDE 10 ML SYRINGE IV SCH ×4 (06:04→21:47)
[2018-10-12] MEDS: PANTOPRAZOLE 40 MG VIAL IV SCH ×2 (07:33→16:59)
--- NOTE | 2018-10-12 14:09 | General Surgery Progress Note ---
Subjective Patient reports: feels better, pain is less, flatus, afebrile Narrative: Note initiated : 10/12/18 at 2:07 pm Service Date, if different from initiated Date: [] Patient: Shilpa Soto 73 y/o F admitted on 10/08/18 for Abd Pain. Chief Complaint: [patient continues to improve. She is afebrile. Her pain is controlled with present medication. She denies nausea. She has a small amount of gas in her stoma pouch. Her stoma is healthy. ARNEL drainage is serosanguineous] Objective Temp Pulse Resp BP Pulse Ox 98.5 F 86 20 171/81 92 10/12/18 11:56 10/12/18 03:43 10/12/18 11:56 10/12/18 11:56 10/12/18 11:56 - Additional Data Intake & Output - Last 24 hours: Intake & Output 10/10/18 10/11/18 10/12/18 10/13/18 05:59 05:59 05:59 05:59 Intake Total 2310 5452 3550 1050 Output Total 2350 1675 2025 1075 Balance -40 3777 1525 -25 Weight 190 lb 6.4 oz 197 lb 199 lb - General physical appearance well developed, well nourished, no distress, moderate pain - Eyes PERRL, normal ocular movement - ENT normal pinna, normal nares, normal mucosa, no hearing loss, no congestion - Neck no masses, no bruits, trachea midline, no lymphadenopathy, no venous distension - Respiratory normal expansion, normal respiratory effort, clear to auscultation - Cardiovascular Cardiovascular exam: Present: normal rate and rhythm, RRR, +S1, +S2. Absent: JVD, tachycardia - Abdomen tender (mild to moderate incisional tenderness; good active bowel sounds; incision is unremarkable; stoma is healthy), bowel sounds (present), surgical scars (none), masses (none) - Integumentary no rash, no growths, no abnormal pigmentation - Neurologic normal coordination, normal sensation - Musculoskeletal normal gait, normal posture - Psychiatric oriented to time, oriented to person, oriented to place, speech is normal, memory intact - Labs 10/11/18 03:50 10/11/18 03:50 Assessment and Plan (1) Diverticulitis of intestine with perforation and abscess with bleeding Status: Acute Assessment and plan: Patient is clinically stable. we'll continue present therapy Current Visit: Yes (2) Acute prerenal azotemia Status: Resolved Current Visit: Yes - Time Spent With Patient Total time spent is greater than 50% in coordination of care (as documented) at patient's floor/unit and/or counseling patient:
[2018-10-13] MEDS: 0.9 % SODIUM CHLORIDE 1,000 ML IV SCH ×4 (02:07→22:48)
[2018-10-13 05:35] LABS: Basophils # (Auto) 0 K/mcL (0.0-0.3); Basophils % (Auto) 0.2 % (0.0-2.0); Eosinophils # (Auto) 0.1 K/mcL (0.0-0.7); Granulocytes % (Auto) 80.1 % (38.0-78.0); Lymphocytes # (Auto) 1.4 K/mcL (1.5-4.8); Lymphocytes % (Auto) 10.5 % (15.5-49.0); Mean Cell Volume 89.7 fL (80.0-100.0); Mean Corpuscular HGB Conc 32.8 g/dL (31.0-36.0); Monocytes # (Auto) 1.1 K/mcL (0.1-0.9); Monocytes % (Auto) 8.2 % (1.0-12.0); Platelet Count 245 K/mcL (140-440); RBC 3.71 M/mcL (4.00-5.20); Red Cell Distribution Width 12.9 % (11.5-14.5)
[2018-10-13] MEDS: PIPERACILLIN SODIUM/TAZOBACTAM 3.375 GM in DEXTROSE 5% IN WATER 50 ML IV SCH ×4 (05:47→23:51)
[2018-10-13] MEDS: 0.9 % SODIUM CHLORIDE 10 ML SYRINGE IV SCH ×3 (05:48→22:49)
[2018-10-13 06:18] LABS: ALT/SGPT 13 U/l (0-40); Albumin 2.3 gm/dL (3.2-5.2); Albumin/Globulin Ratio 0.6 (1.0-2.3); Alkaline Phosphatase 66 U/L (39-117); Bilirubin,Direct < 0.2 mg/dL (0.0-0.3); Blood Urea Nitrogen 8 mg/dl (8-23); Gamma Glutamyl Transpeptidase 21 U/L (5-36); Uric Acid 3.1 mg/dL (2.5-8.0)
[2018-10-13] MEDS: PANTOPRAZOLE 40 MG VIAL IV SCH ×2 (07:03→17:33)
[2018-10-13] MEDS: POTASSIUM PHOSPHATE 40 MEQ in DEXTROSE 5% IN WATER 500 ML IV SCH ×2 (10:46→16:19)
[2018-10-14] MEDS: 0.9 % SODIUM CHLORIDE 1,000 ML IV SCH ×2 (03:11→10:41)
[2018-10-14] MEDS: 0.9 % SODIUM CHLORIDE 10 ML SYRINGE IV SCH ×3 (05:06→23:09)
[2018-10-14] MEDS: PIPERACILLIN SODIUM/TAZOBACTAM 3.375 GM in DEXTROSE 5% IN WATER 50 ML IV SCH ×3 (05:35→17:18)
[2018-10-14 06:12] LABS: Basophils # (Auto) 0 K/mcL (0.0-0.3); Basophils % (Auto) 0.1 % (0.0-2.0); Eosinophils # (Auto) 0.2 K/mcL (0.0-0.7); Eosinophils % (Auto) 1.6 % (0.0-7.0); Granulocytes % (Auto) 76.9 % (38.0-78.0); Lymphocytes # (Auto) 1.2 K/mcL (1.5-4.8); Lymphocytes % (Auto) 11.8 % (15.5-49.0); Mean Cell Volume 89.5 fL (80.0-100.0); Mean Corpuscular HGB Conc 32.3 g/dL (31.0-36.0); Monocytes % (Auto) 9.6 % (1.0-12.0); Platelet Count 281 K/mcL (140-440); Red Cell Distribution Width 12.9 % (11.5-14.5)
[2018-10-14 06:30] LABS: ALT/SGPT 17 U/l (0-40); Albumin 2.4 gm/dL (3.2-5.2); Albumin/Globulin Ratio 0.6 (1.0-2.3); Alkaline Phosphatase 65 U/L (39-117); Bilirubin,Direct < 0.2 mg/dL (0.0-0.3); Blood Urea Nitrogen 4 mg/dl (8-23); Gamma Glutamyl Transpeptidase 25 U/L (5-36); Uric Acid 2.2 mg/dL (2.5-8.0)
[2018-10-14] MEDS: PANTOPRAZOLE 40 MG VIAL IV SCH ×2 (07:15→17:27)
[2018-10-14] MEDS ORDERED: POTASSIUM PHOSPHATE 40 MEQ in DEXTROSE 5% IN WATER 500 ML IV ONE (13:00)
--- NOTE | 2018-10-14 18:51 | General Surgery Progress Note ---
Subjective Patient reports: feels better, pain is less, tolerating liquids well, flatus, bowel movement, afebrile Narrative: Note initiated : 10/14/18 at 6:51 pm Service Date, if different from initiated Date: [] Patient: Shilpa Soto 73 y/o F admitted on 10/08/18 for Abd Pain. Chief Complaint: [patient continues to do well. Her pain is better controlled. She had flatus and bowel movement through her stoma. White blood count 9.9; hemoglobin 11; potassium 3.] Objective Temp Pulse Resp BP Pulse Ox 98.5 F 82 24 H 157/83 95 10/14/18 16:00 10/14/18 16:00 10/14/18 16:00 10/14/18 16:00 10/14/18 16:00 - Additional Data Intake & Output - Last 24 hours: Intake & Output 10/12/18 10/13/18 10/14/18 10/15/18 05:59 05:59 05:59 05:59 Intake Total 3550 3580 4578.0909 1790 Output Total 5 3515 1297 103 Balance 1525 65 3281.0909 1687 Weight 199 lb 201 lb 8 oz 199 lb - General physical appearance well developed, well nourished, no distress - Eyes PERRL, normal ocular movement - ENT normal pinna, normal nares, normal mucosa, no hearing loss, no congestion - Neck no masses, no bruits, trachea midline, no lymphadenopathy, no venous distension - Respiratory normal expansion, normal respiratory effort, clear to auscultation - Cardiovascular Cardiovascular exam: Present: normal rate and rhythm, RRR, +S1, +S2. Absent: JVD, tachycardia - Abdomen tender (mild incisional tenderness; good active bowel sounds), bowel sounds (present), surgical scars ( stoma looks good; surgical incision is healing uneventfully; she has good active bowel sounds), masses (none) - Integumentary no rash, no growths, no abnormal pigmentation - Neurologic normal coordination, normal sensation - Musculoskeletal normal gait, normal posture - Psychiatric oriented to time, oriented to person, oriented to place, speech is normal, memory intact - Labs 10/15/18 09:20 10/15/18 09:20 Diabetes panel 10/14/18 Range/Units 04:48 Sodium 143 (133-145) mmol/L Potassium 3.0 L (3.3-5.1) mmol/L Chloride 104 (96-108) mmol/L Carbon Dioxide 28 (22-30) mmol/L BUN 4 L (8-23) mg/dl Creatinine 0.5 L (0.6-1.1) mg/dl Glucose 118 H (70-105) mg/dL Calcium 8.6 (8.6-10.4) mg/dl AST 20 (0-37) U/l ALT 17 (0-40) U/l Alkaline Phosphatase 65 (39-117) U/L Total Protein 6.1 (5.9-8.4) gm/dL Albumin 2.4 L (3.2-5.2) gm/dL Triglycerides 129 (<150) mg/dl Calcium panel 10/14/18 Range/Units 04:48 Calcium 8.6 (8.6-10.4) mg/dl Phosphorus 2.7 (2.7-4.5) mg/dL Albumin 2.4 L (3.2-5.2) gm/dL Pituitary panel 10/14/18 Range/Units 04:48 Sodium 143 (133-145) mmol/L Potassium 3.0 L (3.3-5.1) mmol/L Chloride 104 (96-108) mmol/L Carbon Dioxide 28 (22-30) mmol/L BUN 4 L (8-23) mg/dl Creatinine 0.5 L (0.6-1.1) mg/dl Glucose 118 H (70-105) mg/dL Calcium 8.6 (8.6-10.4) mg/dl Adrenal panel 10/14/18 Range/Units 04:48 Sodium 143 (133-145) mmol/L Potassium 3.0 L (3.3-5.1) mmol/L Chloride 104 (96-108) mmol/L Carbon Dioxide 28 (22-30) mmol/L BUN 4 L (8-23) mg/dl Creatinine 0.5 L (0.6-1.1) mg/dl Glucose 118 H (70-105) mg/dL Calcium 8.6 (8.6-10.4) mg/dl Total Bilirubin 0.3 (0.0-1.0) mg/dL AST 20 (0-37) U/l ALT 17 (0-40) U/l Alkaline Phosphatase 65 (39-117) U/L Total Protein 6.1 (5.9-8.4) gm/dL Albumin 2.4 L (3.2-5.2) gm/dL Assessment and Plan (1) Diverticulitis of intestine with perforation and abscess with bleeding Status: Acute Assessment and plan: Patient is clinically stable. we'll continue present therapy Current Visit: Yes (2) Acute prerenal azotemia Status: Resolved Current Visit: Yes - Time Spent With Patient Total time spent is greater than 50% in coordination of care (as documented) at patient's floor/unit and/or counseling patient:
--- NOTE | 2018-10-14 18:51 | General Surgery Progress Note ---
Subjective Patient reports: feels better, still having pain, pain is less, tolerating liquids well, flatus, bowel movement, afebrile Narrative: Note initiated : 10/14/18 at 6:51 pm Service Date, if different from initiated Date: [] Patient: Shilpa Soto 73 y/o F admitted on 10/08/18 for Abd Pain. Chief Complaint: [patient continues to improve daily basis. her lungs are clear. White blood count was decreased to 9.9.] Objective Temp Pulse Resp BP Pulse Ox 98.5 F 82 24 H 157/83 95 10/14/18 16:00 10/14/18 16:00 10/14/18 16:00 10/14/18 16:00 10/14/18 16:00 - Additional Data Intake & Output - Last 24 hours: Intake & Output 10/12/18 10/13/18 10/14/18 10/15/18 05:59 05:59 05:59 05:59 Intake Total 3550 3580 4578.0909 1790 Output Total 2025 3515 1297 103 Balance 1525 65 3281.0909 1687 Weight 199 lb 201 lb 8 oz 199 lb - General physical appearance well developed, well nourished, no distress - ENT normal pinna, normal nares, normal mucosa, no hearing loss, no congestion - Neck no masses, no bruits, trachea midline, no lymphadenopathy, no venous distension - Respiratory normal expansion, normal respiratory effort, clear to auscultation - Cardiovascular Cardiovascular exam: Present: normal rate and rhythm, RRR, +S1, +S2. Absent: JVD, tachycardia - Abdomen tender, distended (thank you) - Integumentary no rash, no growths, no abnormal pigmentation - Neurologic normal coordination, normal sensation - Musculoskeletal normal gait, normal posture - Psychiatric oriented to time, oriented to person, oriented to place, speech is normal, memory intact - Labs 10/15/18 09:20 10/17/18 06:06 Diabetes panel 10/14/18 Range/Units 04:48 Sodium 143 (133-145) mmol/L Potassium 3.0 L (3.3-5.1) mmol/L Chloride 104 (96-108) mmol/L Carbon Dioxide 28 (22-30) mmol/L BUN 4 L (8-23) mg/dl Creatinine 0.5 L (0.6-1.1) mg/dl Glucose 118 H (70-105) mg/dL Calcium 8.6 (8.6-10.4) mg/dl AST 20 (0-37) U/l ALT 17 (0-40) U/l Alkaline Phosphatase 65 (39-117) U/L Total Protein 6.1 (5.9-8.4) gm/dL Albumin 2.4 L (3.2-5.2) gm/dL Triglycerides 129 (<150) mg/dl Calcium panel 10/14/18 Range/Units 04:48 Calcium 8.6 (8.6-10.4) mg/dl Phosphorus 2.7 (2.7-4.5) mg/dL Albumin 2.4 L (3.2-5.2) gm/dL Pituitary panel 10/14/18 Range/Units 04:48 Sodium 143 (133-145) mmol/L Potassium 3.0 L (3.3-5.1) mmol/L Chloride 104 (96-108) mmol/L Carbon Dioxide 28 (22-30) mmol/L BUN 4 L (8-23) mg/dl Creatinine 0.5 L (0.6-1.1) mg/dl Glucose 118 H (70-105) mg/dL Calcium 8.6 (8.6-10.4) mg/dl Adrenal panel 10/14/18 Range/Units 04:48 Sodium 143 (133-145) mmol/L Potassium 3.0 L (3.3-5.1) mmol/L Chloride 104 (96-108) mmol/L Carbon Dioxide 28 (22-30) mmol/L BUN 4 L (8-23) mg/dl Creatinine 0.5 L (0.6-1.1) mg/dl Glucose 118 H (70-105) mg/dL Calcium 8.6 (8.6-10.4) mg/dl Total Bilirubin 0.3 (0.0-1.0) mg/dL AST 20 (0-37) U/l ALT 17 (0-40) U/l Alkaline Phosphatase 65 (39-117) U/L Total Protein 6.1 (5.9-8.4) gm/dL Albumin 2.4 L (3.2-5.2) gm/dL Assessment and Plan (1) Diverticulitis of intestine with perforation and abscess with bleeding Status: Acute Assessment and plan: Patient is clinically stable. we'll continue present therapy Current Visit: Yes (2) Acute prerenal azotemia Status: Resolved Current Visit: Yes - Time Spent With Patient Total time spent is greater than 50% in coordination of care (as documented) at patient's floor/unit and/or counseling patient:
[2018-10-14] MEDS: ACETAMINOPHEN 1,000 MG/100 ML BOTTLE IV PRN (23:08)
[2018-10-15] MEDS: PIPERACILLIN SODIUM/TAZOBACTAM 3.375 GM in DEXTROSE 5% IN WATER 50 ML IV SCH ×3 (00:38→11:26)
[2018-10-15] MEDS: 0.9 % SODIUM CHLORIDE 10 ML SYRINGE IV SCH ×3 (05:08→23:32)
[2018-10-15] MEDS: PANTOPRAZOLE 40 MG VIAL IV SCH ×2 (07:20→18:01)
[2018-10-15 09:54] LABS: Basophils # (Auto) 0 K/mcL (0.0-0.3); Basophils % (Auto) 0.1 % (0.0-2.0); Eosinophils # (Auto) 0.2 K/mcL (0.0-0.7); Eosinophils % (Auto) 1.7 % (0.0-7.0); Granulocytes % (Auto) 82.5 % (38.0-78.0); Lymphocytes % (Auto) 9.5 % (15.5-49.0); Mean Cell Volume 89.2 fL (80.0-100.0); Mean Corpuscular HGB Conc 32.4 g/dL (31.0-36.0); Monocytes # (Auto) 0.7 K/mcL (0.1-0.9); Monocytes % (Auto) 6.2 % (1.0-12.0); Platelet Count 342 K/mcL (140-440); RBC 4.22 M/mcL (4.00-5.20); Red Cell Distribution Width 13.1 % (11.5-14.5)
--- NOTE | 2018-10-15 10:02 | Surgical Pathology Report ---
HISTOLOGY SPECIMEN MICROSCOPIC DIAGNOSIS SPECIMEN A - APPENDIX, APPENDECTOMY: -- ACUTE APPENDICITIS WITH PERFORATION AND ACUTE SEROSITIS. SPECIMEN B - COLON, SIGMOID, PARTIAL COLECTOMY: -- DIVERTICULITIS WITH PERFORATION, ABSCESS, FIBROSIS AND SEROSITIS. -- ELEVEN BENIGN LYMPH NODES. -- VIABLE MARGINS OF RESECTION. -- NO MALIGNANCY IDENTIFIED. (RLF:adj) PROCEDURAL IMPRESSION Diverticulitis of intestine with perforation and abscess with bleeding. GROSS DESCRIPTION Specimen A: Received in formalin labeled appendix, is a portion of brito-purple tissue with white-brito surface exudate that measures 4.5 x 3 x 2 cm. At the proximal margin a tubular structure compatible with appendix is identified that measures 0.5 cm in diameter. This margin is inked black. Sectioning through the appendix reveals a region of possible perforation. Appendix is entirely submitted in seven cassettes with the possible perforated regions in A2. Specimen B: Received in formalin labeled sigmoid colon segment, is a partial colectomy specimen closed at both ends with staple lines. The segment measures 23 cm in length by 3.7 to 5.5 cm in diameter. The external serosal surface is brito-purple and dusky with brown-brito hemorrhagic regions and white-brito exudate present on both the serosal surface and the attached adipose tissue. Upon opening, the wall is firm, brito and mildly thickened, measuring 0.5 to 0.8 cm in thickness. The mucosal surface is brito and plicated. Multiple diverticula are identified without gross perforation. [employer] sections submitted as follows: B1 - margins inked; B2-B3 - sections of possible diverticula; B4 - background colonic mucosa showing serosal surface exudate; B5-B6 - six candidate nodes each. (RLF:adj) Electronically Signed by: Evita Mcgee M.D.
[2018-10-15 10:34] LABS: ALT/SGPT 25 U/l (0-40); Albumin 2.9 gm/dL (3.2-5.2); Albumin/Globulin Ratio 0.7 (1.0-2.3); Alkaline Phosphatase 70 U/L (39-117); Bilirubin,Direct < 0.2 mg/dL (0.0-0.3); Blood Urea Nitrogen 6 mg/dl (8-23); Gamma Glutamyl Transpeptidase 38 U/L (5-36); Uric Acid 2.1 mg/dL (2.5-8.0)
--- NOTE | 2018-10-15 13:10 | General Surgery Progress Note ---
Subjective Patient reports: feels better, pain is less, flatus, bowel movement, afebrile Narrative: Note initiated : 10/15/18 at 1:08 pm Service Date, if different from initiated Date: [] Patient: Shilpa Soto 73 y/o F admitted on 10/08/18 for Abd Pain. Chief Complaint: [patient continues to improve. Her pain is much improved. She has become much more mobile. Her blood pressure is elevated over the last 24 hours. Urine output is excellent. White blood count 10.8; hemoglobin 12.2; phosphorus 2.6] Objective Temp Pulse Resp BP Pulse Ox 97.8 F 85 16 156/81 96 10/15/18 11:15 10/15/18 11:15 10/15/18 11:15 10/15/18 11:15 10/15/18 11:15 - Additional Data Intake & Output - Last 24 hours: Intake & Output 10/13/18 10/14/18 10/15/18 10/16/18 05:59 05:59 05:59 05:59 Intake Total 3580 4578.0909 2440 360 Output Total 3515 1297 982 400 Balance 65 3281.0909 1458 -40 Weight 201 lb 8 oz 199 lb 195 lb - General physical appearance well developed, well nourished, no distress - Eyes PERRL, normal ocular movement - ENT normal pinna, normal nares, normal mucosa, no hearing loss, no congestion - Neck no masses, no bruits, trachea midline, no lymphadenopathy, no venous distension - Respiratory normal expansion, normal respiratory effort, clear to auscultation - Cardiovascular Cardiovascular exam: Present: normal rate and rhythm, RRR, +S1, +S2. Absent: JVD, tachycardia - Abdomen tender (mild tenderness noted; good active bowel sounds; stoma and incision looking good), bowel sounds (present), surgical scars (none), masses (none) - Integumentary no rash, no growths, no abnormal pigmentation - Neurologic normal coordination, normal sensation - Musculoskeletal normal gait, normal posture - Psychiatric oriented to time, oriented to person, oriented to place, speech is normal, memory intact - Labs 10/15/18 09:20 10/15/18 09:20 Diabetes panel 10/15/18 Range/Units 09:20 Sodium 141 (133-145) mmol/L Potassium 3.1 L (3.3-5.1) mmol/L Chloride 99 (96-108) mmol/L Carbon Dioxide 29 (22-30) mmol/L BUN 6 L (8-23) mg/dl Creatinine 0.6 (0.6-1.1) mg/dl Glucose 137 H (70-105) mg/dL Calcium 9.0 (8.6-10.4) mg/dl AST 27 (0-37) U/l ALT 25 (0-40) U/l Alkaline Phosphatase 70 (39-117) U/L Total Protein 7.0 (5.9-8.4) gm/dL Albumin 2.9 L (3.2-5.2) gm/dL Triglycerides 149 (<150) mg/dl Calcium panel 10/15/18 Range/Units 09:20 Calcium 9.0 (8.6-10.4) mg/dl Phosphorus 2.6 L (2.7-4.5) mg/dL Albumin 2.9 L (3.2-5.2) gm/dL Pituitary panel 10/15/18 Range/Units 09:20 Sodium 141 (133-145) mmol/L Potassium 3.1 L (3.3-5.1) mmol/L Chloride 99 (96-108) mmol/L Carbon Dioxide 29 (22-30) mmol/L BUN 6 L (8-23) mg/dl Creatinine 0.6 (0.6-1.1) mg/dl Glucose 137 H (70-105) mg/dL Calcium 9.0 (8.6-10.4) mg/dl Adrenal panel 10/15/18 Range/Units 09:20 Sodium 141 (133-145) mmol/L Potassium 3.1 L (3.3-5.1) mmol/L Chloride 99 (96-108) mmol/L Carbon Dioxide 29 (22-30) mmol/L BUN 6 L (8-23) mg/dl Creatinine 0.6 (0.6-1.1) mg/dl Glucose 137 H (70-105) mg/dL Calcium 9.0 (8.6-10.4) mg/dl Total Bilirubin 0.4 (0.0-1.0) mg/dL AST 27 (0-37) U/l ALT 25 (0-40) U/l Alkaline Phosphatase 70 (39-117) U/L Total Protein 7.0 (5.9-8.4) gm/dL Albumin 2.9 L (3.2-5.2) gm/dL Assessment and Plan (1) Diverticulitis of intestine with perforation and abscess with bleeding Status: Acute Assessment and plan: Patient is clinically stable. Amlodipine 10 mg daily Discontinue Zosyn Ciprofloxacin 400 mg IV every 12 hours Metronidazole 500 mg IV every 6 hours Current Visit: Yes (2) Acute prerenal azotemia Status: Resolved Current Visit: Yes - Time Spent With Patient Total time spent is greater than 50% in coordination of care (as documented) at patient's floor/unit and/or counseling patient:
[2018-10-15] MEDS: metroNIDAZOLE 500 MG/100 ML BAG IV SCH ×3 (14:19→23:32)
[2018-10-15] MEDS: CIPROFLOXACIN 400 MG/200 ML BAG IV SCH (15:09)
[2018-10-16] MEDS: CIPROFLOXACIN 400 MG/200 ML BAG IV SCH ×3 (00:42→19:14)
[2018-10-16] MEDS: metroNIDAZOLE 500 MG/100 ML BAG IV SCH ×3 (05:38→17:31)
[2018-10-16] MEDS: 0.9 % SODIUM CHLORIDE 10 ML SYRINGE IV SCH ×3 (05:39→20:18)
[2018-10-16] MEDS: PANTOPRAZOLE 40 MG VIAL IV SCH ×2 (07:23→17:31)
[2018-10-16] MEDS: amLODIPine 10 MG TABLET PO SCH (11:16)
[2018-10-16 16:20] LABS: ALT/SGPT 25 U/l (0-40); Albumin 2.8 gm/dL (3.2-5.2); Albumin/Globulin Ratio 0.8 (1.0-2.3); Alkaline Phosphatase 66 U/L (39-117); Bilirubin,Direct < 0.2 mg/dL (0.0-0.3); Blood Urea Nitrogen 7 mg/dl (8-23); Gamma Glutamyl Transpeptidase 35 U/L (5-36); Uric Acid 3.1 mg/dL (2.5-8.0)
--- NOTE | 2018-10-16 16:59 | General Surgery Progress Note ---
Subjective Patient reports: feels better, pain is less, tolerating a regular diet, flatus, bowel movement, diarrhea, afebrile Narrative: Note initiated : 10/16/18 at 4:57 pm Service Date, if different from initiated Date: [] Patient: Shilpa Soto 73 y/o F admitted on 10/08/18 for Abd Pain. Chief Complaint: [Patient continues to do well. She has been afebrile. She is having good bowel movements and is tolerating diet. Her stoma is functioning nicely. . Discussed with patient the need for rehabilitation and group home. We'll make plans for transfer to group home tomorrow on oral antibiotics. She was born in multiple aerobic and anaerobic organisms which can be adequately covered with ciprofloxacin and Flagyl.] Objective Temp Pulse Resp BP Pulse Ox 97.7 F 77 16 147/72 95 10/16/18 15:00 10/16/18 15:00 10/16/18 15:00 10/16/18 15:00 10/16/18 15:00 - Additional Data Intake & Output - Last 24 hours: Intake & Output 10/14/18 10/15/18 10/16/18 10/17/18 05:59 05:59 05:59 05:59 Intake Total 4578.0909 2440 1535 425 Output Total 2378 195 2427 1575 Balance 3281.0909 1458 -1488 -1150 Weight 199 lb 195 lb 194 lb 4.8 oz 194 lb 4.8 oz - General physical appearance well developed, well nourished, no distress - Eyes PERRL, normal ocular movement - ENT normal pinna, normal nares, normal mucosa, no hearing loss, no congestion - Neck no masses, no bruits, trachea midline, no lymphadenopathy, no venous distension - Respiratory normal expansion, normal respiratory effort, clear to auscultation - Cardiovascular Cardiovascular exam: Present: normal rate and rhythm, RRR, +S1, +S2. Absent: JVD, tachycardia - Abdomen tender (mild incisional tenderness; less abdominal distention; stoma looks good; good active bowel sounds) - Integumentary no rash, no growths, no abnormal pigmentation - Neurologic normal coordination, normal sensation - Musculoskeletal normal gait, normal posture - Psychiatric oriented to time, oriented to person, oriented to place, speech is normal, memory intact - Labs 10/15/18 09:20 10/16/18 14:06 Diabetes panel 10/16/18 Range/Units 14:06 Sodium 141 (133-145) mmol/L Potassium 3.1 L (3.3-5.1) mmol/L Chloride 102 (96-108) mmol/L Carbon Dioxide 28 (22-30) mmol/L BUN 7 L (8-23) mg/dl Creatinine 0.6 (0.6-1.1) mg/dl Glucose 121 H (70-105) mg/dL Calcium 8.8 (8.6-10.4) mg/dl AST 24 (0-37) U/l ALT 25 (0-40) U/l Alkaline Phosphatase 66 (39-117) U/L Total Protein 6.4 (5.9-8.4) gm/dL Albumin 2.8 L (3.2-5.2) gm/dL Triglycerides 130 (<150) mg/dl Calcium panel 10/16/18 Range/Units 14:06 Calcium 8.8 (8.6-10.4) mg/dl Phosphorus 2.2 L (2.7-4.5) mg/dL Albumin 2.8 L (3.2-5.2) gm/dL Pituitary panel 10/16/18 Range/Units 14:06 Sodium 141 (133-145) mmol/L Potassium 3.1 L (3.3-5.1) mmol/L Chloride 102 (96-108) mmol/L Carbon Dioxide 28 (22-30) mmol/L BUN 7 L (8-23) mg/dl Creatinine 0.6 (0.6-1.1) mg/dl Glucose 121 H (70-105) mg/dL Calcium 8.8 (8.6-10.4) mg/dl Adrenal panel 10/16/18 Range/Units 14:06 Sodium 141 (133-145) mmol/L Potassium 3.1 L (3.3-5.1) mmol/L Chloride 102 (96-108) mmol/L Carbon Dioxide 28 (22-30) mmol/L BUN 7 L (8-23) mg/dl Creatinine 0.6 (0.6-1.1) mg/dl Glucose 121 H (70-105) mg/dL Calcium 8.8 (8.6-10.4) mg/dl Total Bilirubin 0.2 (0.0-1.0) mg/dL AST 24 (0-37) U/l ALT 25 (0-40) U/l Alkaline Phosphatase 66 (39-117) U/L Total Protein 6.4 (5.9-8.4) gm/dL Albumin 2.8 L (3.2-5.2) gm/dL Assessment and Plan (1) Diverticulitis of intestine with perforation and abscess with bleeding Status: Acute Assessment and plan: Patient is clinically stable. Amlodipine 10 mg daily Discontinue Zosyn Ciprofloxacin 400 mg IV every 12 hours Metronidazole 500 mg IV every 6 hours Current Visit: Yes (2) Acute prerenal azotemia Status: Resolved Current Visit: Yes - Time Spent With Patient Total time spent is greater than 50% in coordination of care (as documented) at patient's floor/unit and/or counseling patient:
[2018-10-16] MEDS: POTASSIUM PHOSPHATE 40 MEQ in DEXTROSE 5% IN WATER 500 ML IV SCH (20:17)
[2018-10-17] MEDS: metroNIDAZOLE 500 MG/100 ML BAG IV SCH ×3 (00:15→13:11)
[2018-10-17] MEDS: POTASSIUM PHOSPHATE 40 MEQ in DEXTROSE 5% IN WATER 500 ML IV SCH (01:11)
[2018-10-17] MEDS: 0.9 % SODIUM CHLORIDE 10 ML SYRINGE IV SCH ×2 (05:18→14:13)
[2018-10-17] MEDS: amLODIPine 10 MG TABLET PO SCH (08:07)
[2018-10-17] MEDS: PANTOPRAZOLE 40 MG VIAL IV SCH (08:07)
[2018-10-17 08:16] LABS: ALT/SGPT 23 U/l (0-40); Albumin 2.7 gm/dL (3.2-5.2); Albumin/Globulin Ratio 0.8 (1.0-2.3); Alkaline Phosphatase 60 U/L (39-117); Bilirubin,Direct < 0.2 mg/dL (0.0-0.3); Blood Urea Nitrogen 6 mg/dl (8-23); Gamma Glutamyl Transpeptidase 34 U/L (5-36); Uric Acid 3.2 mg/dL (2.5-8.0)
[2018-10-17] MEDS: CIPROFLOXACIN 400 MG/200 ML BAG IV SCH (10:37)
--- NOTE | 2018-10-17 13:15 | Discharge Summary ---
Providers - Providers Patient information: Note initiated : 10/17/18 at 1:11 pm Service Date, if different from initiated Date: [] Patient: Shilpa Soto 73 y/o F admitted on 10/08/18 for Abd Pain. Chief Complaint: [] Date of admission: 11/08/18 Discharge date: 10/17/18 Attending physician: Jakob Oneill Hospitalization Hospital course: 73-year-old female presented to the emergency room after multiple day history of recurrent severe abdominal pain nausea vomiting fever. On evaluation she was noted to have a white blood count of 18,[address] of the abdomen showed advanced diverticulitis with inflammation of the terminal ileum and 3 large abscesses in the deep pelvis. She was treated with antibiotics and prepared for surgery. On 10 November she was explored and was found to have advanced diverticulitis involving primarily the sigmoid and 3 large at abscesses of the pelvis with one collection containing fred feculent material. The appendix was also in the middle of this collection and there was a suggestion that there was perforation of the appendix. It is not known if it was primary or secondary. Sigmoid colectomy with appendectomy was done with drainage of the pelvis. Cultures of the fluid grew out Escherichia coli and Klebsiella in the aerobic cultures and 3 anaerobes and anaerobic culture. She responded to antibiotics and has done well. Her white blood count was 529 September. She started having good stoma function the third postoperative day and was advanced on diet on the fourth postoperative day. She has done well since that time. She has some barry ctrolyte abnormalities were corrected with electrolyte replacement. The patient is now much stronger. She is more familiar with her stoma and her attitude towards his care has been very good. She is weaker however is anticipated that she will need rehabilitation skilled care for about 2 weeks until she can adequately perform her own activities of daily living and care for her stoma. Discharge diagnosis: acute diverticulitis with abscess Secondary discharge diagnosis: Acute appendicitis Reason for admission: perforated diverticulitis with abscess Procedures: Sigmoid colectomy with appendectomy and drainage of multiple pelvic abscesses October 04 Pertinent studies/significant findings: CT of abdomen and pelvis with contrast Complications: None Exam Temp Pulse Resp BP Pulse Ox 97.7 F 75 20 134/74 96 10/17/18 11:00 10/17/18 03:00 10/17/18 11:00 10/17/18 11:00 10/17/18 11:00 - General physical appearance well developed, well nourished, no distress - Eyes PERRL, normal ocular movement - ENT normal pinna, normal nares, normal mucosa, no hearing loss, no congestion - Head Head exam IM: Present: atraumatic, normocephalic - Neck no masses, no bruits, trachea midline, no lymphadenopathy, no venous distension - Cardiovascular Cardiovascular exam IM: Present: normal rate and rhythm - Respiratory normal expansion, normal respiratory effort, clear to percussion, clear to auscultation - Abdomen Abdomen: Present: soft, tender (mild incisional tenderness; good active bowel sounds; stoma looks good), bowel sounds Hernia: Present: none - Genitourinary Present: normal external genitalia - Integumentary Present: no rash, no growths, no abnormal pigmentation - Neurologic Present: normal coordination, normal sensation - Musculoskeletal Present: normal gait, normal posture - Psychiatric Present: oriented to time, oriented to person, oriented to place, speech is normal, memory intact Discharge Plan - Patient/Caregiver Discharge Instructions Activity: as per physical therapy, increase activity as tolerated Diet: Regular Diet Additional Instructions: Leave dressings in place until you return to the office EMPTY drains once twice daily as needed The proactive then carried for your stoma since it will be in place for 3 months Prescriptions: amLODIPine [Norvasc] 10 mg PO DAILY #30 tablet Ciprofloxacin [Cipro] 500 mg PO BID #40 tablet metroNIDAZOLE [Metronidazole] 500 mg PO Q8 #90 tablet - Follow up Plan Follow up with: Jakob Oneill MD [Physician] - 10/28/18 9:00 am () Disposition: Xfer Inpatient Rehab Fac Prognosis: Good Rehab Potential: Good I certify that the patient requires SNF services.: Yes Overall status at discharge: patient is not back to baseline Pending Studies Resuscitation Status Full Code Diet Regular Diet Start SatOct 15 132 Amlodipine Besylate (Norvasc) 10 mg PO DAILY CHINO Last Admin: 10/17/18 08:07 Dose: 10 mg Documented by: Admin: 10/16/18 11:16 Dose: 10 mg Documented by: WILL Benzocaine (Cetacaine) 1 spray TOPICAL PRN PRN PRN Reason: NG TUBE Last Admin: 10/10/18 18:07 Dose: 1 spray Documented by: Admin: 10/10/18 15:10 Dose: 1 spray Documented by: [email or web address] Acetaminophen (Ofirmev) 1,000 mg in 100 mls @ 200 mls/hr IV Q6HP PRN PRN Reason: Pain Last Infusion: 10/14/18 23:39 Dose: 0 mls/hr Documented by: Admin: 10/14/18 23:08 Dose: 200 mls/hr Documented by: Infusion: 10/11/18 20:35 Dose: 0 mls/hr Documented by: Admin: 10/11/18 19:31 Dose: 200 mls/hr Documented by: Infusion: 10/11/18 13:40 Dose: 0 mls/hr Documented by: [email or web address] Admin: 10/11/18 12:46 Dose: 200 mls/hr Documented by: Infusion: 10/11/18 06:16 Dose: 200 mls/hr Documented by: [email or web address] Admin: 10/11/18 05:46 Dose: 200 mls/hr Documented by: Infusion: 10/10/18 18:44 Dose: 0 mls/hr Documented by: Admin: 10/10/18 18:06 Dose: 200 mls/hr Documented by: EVITA Ciprofloxacin (Cipro) 400 mg in 200 mls @ 200 mls/hr IV Q12H CHINO Last Admin: 10/17/18 10:37 Dose: 200 mls/hr Documented by: Infusion: 10/16/18 20:30 Dose: 0 mls/hr Documented by: Admin: 10/16/18 19:14 Dose: 200 mls/hr Documented by: Infusion: 10/16/18 12:00 Dose: 0 mls/hr Documented by: Admin: 10/16/18 11:00 Dose: 200 mls/hr Documented by: Infusion: 10/16/18 01:42 Dose: 0 mls/hr Documented by: Admin: 10/16/18 00:42 Dose: 200 mls/hr Documented by: Infusion: 10/15/18 16:15 Dose: 0 mls/hr Documented by: [email or web address] Admin: 10/15/18 15:09 Dose: 200 mls/hr Documented by: HUGO Metronidazole (Flagyl) 500 mg in 100 mls @ 100 mls/hr IV Q6H CHINO Last Infusion: 10/17/18 10:37 Dose: 0 mls/hr Documented by: Admin: 10/17/18 05:18 Dose: 100 mls/hr Documented by: Infusion: 10/17/18 01:10 Dose: 0 mls/hr Documented by: Admin: 10/17/18 00:15 Dose: 100 mls/hr Documented by: Infusion: 10/16/18 19:30 Dose: 0 mls/hr Documented by: Infusion: 10/16/18 18:30 Dose: 0 mls/hr Documented by: Admin: 10/16/18 17:31 Dose: 100 mls/hr Documented by: Infusion: 10/16/18 15:12 Dose: 0 mls/hr Documented by: Admin: 10/16/18 12:15 Dose: 100 mls/hr Documented by: WILL Meperidine HCl (Demerol) 25 mg IV Q4HP PRN PRN Reason: PAIN LEVEL > 6 Last Admin: 10/12/18 21:46 Dose: 25 mg Documented by: Admin: 10/12/18 14:11 Dose: 25 mg Documented by: Admin: 10/12/18 09:24 Dose: 25 mg Documented by: [email or web address] Admin: 10/12/18 03:31 Dose: 25 mg Documented by: Admin: 10/11/18 20:52 Dose: 25 mg Documented by: Admin: 10/11/18 16:22 Dose: 25 mg Documented by: [email or web address] Admin: 10/11/18 11:57 Dose: 25 mg Documented by: Admin: 10/11/18 07:53 Dose: 25 mg Documented by: Admin: 10/11/18 03:14 Dose: 25 mg Documented by: Admin: 10/10/18 23:17 Dose: 25 mg Documented by: Admin: 10/10/18 19:14 Dose: 25 mg Documented by: Admin: 10/10/18 14:53 Dose: 25 mg Documented by: [email or web address] Pantoprazole Sodium (Protonix) 40 mg IV BIDAC [facility] Last Admin: 10/17/18 08:07 Dose: 40 mg Documented by: Admin: 10/16/18 17:31 Dose: 40 mg Documented by: Admin: 10/16/18 07:23 Dose: 40 mg Documented by: Admin: 10/15/18 18:01 Dose: 40 mg Documented by: [email or web address] Admin: 10/15/18 07:20 Dose: 40 mg Documented by: [email or web address] Admin: 10/14/18 17:27 Dose: 40 mg Documented by: [email or web address] Admin: 10/14/18 07:15 Dose: 40 mg Documented by: [email or web address] Admin: 10/13/18 17:33 Dose: 40 mg Documented by: [email or web address] Admin: 10/13/18 07:03 Dose: 40 mg Documented by: [email or web address] Admin: 10/12/18 16:59 Dose: 40 mg Documented by: [email or web address] Admin: 10/12/18 07:33 Dose: 40 mg Documented by: [email or web address] Admin: 10/11/18 17:46 Dose: 40 mg Documented by: [email or web address] Admin: 10/11/18 07:50 Dose: 40 mg Documented by: [facility] Admin: 10/10/18 18:11 Dose: 40 mg Documented by: [email or web address] Sodium Chloride (Saline Flush) 10 ml IV Q8 [facility] Admin: 10/17/18 05:18 Dose: 10 ml Documented by: Admin: 10/16/18 20:18 Dose: 10 ml Documented by: Admin: 10/16/18 17:31 Dose: 10 ml Documented by: Admin: 10/16/18 05:39 Dose: 10 ml Documented by: Admin: 10/15/18 23:32 Dose: 10 ml Documented by: Admin: 10/15/18 14:19 Dose: 10 ml Documented by: [email or web address] Admin: 10/15/18 05:08 Dose: 10 ml Documented by: Admin: 10/14/18 23:09 Dose: 10 ml Documented by: Admin: 10/14/18 12:51 Dose: 10 ml Documented by: [email or web address] Admin: 10/14/18 05:06 Dose: Not Given Documented by: Admin: 10/13/18 22:49 Dose: Not Given Documented by: Admin: 10/13/18 15:41 Dose: Not Given Documented by: [email or web address] Admin: 10/13/18 05:48 Dose: 10 ml Documented by: Admin: 10/12/18 21:47 Dose: 10 ml Documented by: Admin: 10/12/18 13:33 Dose: 10 ml Documented by: [email or web address] Admin: 10/12/18 06:04 Dose: Not Given Documented by: Admin: 10/12/18 00:00 Dose: 10 ml Documented by: Admin: 10/11/18 13:40 Dose: 10 ml Documented by: [email or web address] Admin: 10/11/18 05:46 Dose: 10 ml Documented by: Admin: 10/10/18 21:35 Dose: Not Given Documented by: Admin: 10/10/18 19:15 Dose: 10 ml Documented by: Admin: 10/10/18 14:37 Dose: Not Given Documented by: [email or web address] Shift Summary 10/17/18 03:30 Shift Summary by Christin Galindo AOx4. VSS on RA. OOB SBA FWW. Voiding without issue. ARNEL x2. Colostomy LLQ. Mepilex x2 to intact blister to R and L buttock. Midline incision with arpit with moderate amount of bloody drainage. Site cleaned and tegaderm changed. Potassium phosphate 40meq bag x2 ordered. Bag 2 of 2 currently infusing to be completed prior to shift change. Initialized on 10/17/18 03:30 - END OF NOTE
--- NOTE | 2018-10-21 16:39 | Operative Note ---
DATE OF OPERATION: 10/10/2018 PREOPERATIVE DIAGNOSIS: Diverticulitis with multiple pelvic abscesses. POSTOPERATIVE DIAGNOSIS: Diverticulitis with multiple pelvic abscesses and acute appendicitis. PROCEDURE: Sigmoid colectomy with colostomy and appendectomy. SURGEON: Jakob Oneill M.D. FINDINGS: Major inflammation of the sigmoid colon extending into the pelvis with large volume abscesses x3 with phlegmon involving the colon, small bowel, bladder and rectum. The appendix and cecum were in the middle of the abscess cavity also, and there appeared to be a perforation of the appendix. I could not determine if this perforation was due to extensive infection or if it was primary. DESCRIPTION OF PROCEDURE: Under general anesthesia, the patient's abdomen was prepped and draped in a sterile field. Timeout procedure was carried out as per protocol. Midline incision was made. The incision was started in the lower midline and extended above the umbilicus in the midepigastric midline. Upon entering the abdomen, a large volume of purulence was encountered. Using blunt dissection, the omentum, which was over the firm inflammatory mass, was bluntly dissected, and a large abscess cavity was encountered. This was irrigated and suctioned. Next, the sigmoid colon was followed distally into this very thick phlegmon. It was mobilized along its lateral border using primarily sharp dissection until it extended into the pelvis. Laterally along the rectosigmoid junction, a large abscess was encountered, and this abscess contained fecal material. Cultures were taken. It was then copiously irrigated with saline. Next, the rectosigmoid was from the bladder and another abscess was encountered. This was dissected free and irrigated. The rectosigmoid was followed down in the hollow of the sacrum and small abscess pockets were encountered. These were fractionated and dissected. Finally, the cecum was from this inflammatory mass, and at the base of the cecum the appendix was noted. The appendix was primarily involved in the inflammatory process, and the entire appendix was severely inflamed. There appeared to be a primary perforation of the appendix, but I was unsure if this was secondary or truly primary. The base of the appendix was dissected and was transected after stapling with two TA 30 staplers. The mesoappendix was clamped and divided and controlled with ligatures of 2-0 silk. The appendiceal stump was inverted and sutured with interrupted 2-0 silk. The rest of the cecum was inspected and was unremarkable. Being satisfied that all of the abscesses had been adequately drained, the sigmoid was dissected up to the level of the mid descending colon. It was then divided using a Contour stapler at about mid left colon. The rectosigmoid junction was divided above the peritoneal reflection with the Contour stapler. The mesocolon was dissected and divided using the LigaSure. The specimen was passed off. Next, an opening was made in the left lower quadrant fci between the umbilicus and anterior superior iliac spine. The skin was incised circumferentially. The subcutaneous fat and muscle were divided longitudinally. The opening was dilated and the end of the proximal sigmoid was pulled through this opening. More irrigation was carried out and the bowel wall was sutured to the peritoneum sutured circumferentially. The bowel was then sutured laterally to the peritoneum to prevent internal hernia and herniation. Sponge, needle, instrument and blade counts were verified as correct. Two ARNEL drains were placed in the depth of the pelvis and brought out in the right lower quadrant. Sponge, needle, and blade counts were verified as correct again. The fascia and peritoneum were closed with a running #1 Prolene. Subcutaneous tissue was irrigated with saline and then closed with 2-0 Monocryl. Skin was closed with arpit. The incision was covered and the stoma was matured with suture of the wall of the bowel to the anterior rectus fascia with interrupted 2-0 silk. The end of the bowel was then sutured to the dermis using a running 3-0 Vicryl. Stoma appliance was placed, as well as a large Tegaderm dressing was placed. The patient tolerated the procedure well. She was awakened, transferred to a bed, and taken to the postanesthetic care unit in satisfactory condition. LCS:rogers Job ID: [id number] Doc ID: [id number] Jakob Oneill M.D.
== END 2018-10-17 14:33 | DRG 329 ==
LOC: ED 09:08 → MEDSUR 13:41
PROVIDERS: ADMIT Family Medicine Adult Medicine; ATTEND Family Medicine Adult Medicine

== ENCOUNTER 2019-01-21 04:42 | Inpatient (IN) ==
--- NOTE | 2019-01-15 16:43 | XRay Report ---
INDICATION: Preoperative evaluation TECHNIQUE: PA and lateral upright chest x-ray COMPARISON: Previous examination dated 10/08/2018 FINDINGS:Lungs are negative. No parenchymal infiltrate or mass. No focal pulmonary parenchymal abnormality. Heart size and vascularity are normal. Daly and mediastinum are negative. There is no pleural fluid. IMPRESSION: Negative PA and lateral chest x-ray Interpreted and Authenticated by: Hernandez Hewitt 01/15/19
[2019-01-15 20:43] LABS: Basophils # (Auto) 0 K/mcL (0.0-0.3); Basophils % (Auto) 0.3 % (0.0-2.0); Eosinophils # (Auto) 0.1 K/mcL (0.0-0.7); Granulocytes % (Auto) 60.7 % (38.0-78.0); Lymphocytes # (Auto) 1.8 K/mcL (1.5-4.8); Lymphocytes % (Auto) 27.9 % (15.5-49.0); Mean Cell Volume 89.8 fL (80.0-100.0); Mean Corpuscular HGB Conc 33.3 g/dL (31.0-36.0); Monocytes # (Auto) 0.6 K/mcL (0.1-0.9); Monocytes % (Auto) 10.1 % (1.0-12.0); Platelet Count 229 K/mcL (140-440); RBC 4.53 M/mcL (4.00-5.20)
[2019-01-15 20:54] LABS: ALT/SGPT 26 U/l (0-40); Albumin 4.4 gm/dL (3.2-5.2); Albumin/Globulin Ratio 1.2 (1.0-2.3); Alkaline Phosphatase 112 U/L (39-117); Blood Urea Nitrogen 19 mg/dl (8-23)
[2019-01-21] MEDS ORDERED: metroNIDAZOLE 500 MG/100 ML BAG IV SCH (06:00)
[2019-01-21] MEDS ORDERED: cefOXitin 2 GM VIAL IV SCH (06:00)
[2019-01-21] MEDS ORDERED: ONDANSETRON 4 MG/2 ML VIAL IV ONE (08:10)
[2019-01-21] MEDS ORDERED: ROCURONIUM 10 MG/ML ML IV ONE (08:10)
[2019-01-21] MEDS ORDERED: DEXAMETHASONE 4 MG/ML VIAL IV ONE (08:10)
[2019-01-21] MEDS ORDERED: MIDAZOLAM 2 MG/2 ML VIAL IV ONE (08:10)
[2019-01-21] MEDS ORDERED: LIDOCAINE HCL/PF 100 MG/5 ML SYRINGE IV ONE (08:10)
[2019-01-21] MEDS ORDERED: fentaNYL 250 MCG/5 ML VIAL IV ONE (08:10)
[2019-01-21] MEDS ORDERED: PHENYLEPHRINE 10 MG/ML VIAL IV ONE (08:10)
[2019-01-21] MEDS ORDERED: KETAMINE 100 MG/ML ML IV ONE (08:10)
[2019-01-21] MEDS ORDERED: GLYCOPYRROLATE 0.2 MG/ML VIAL IV ONE (08:10)
[2019-01-21] MEDS ORDERED: PROPOFOL 200 MG/20 ML VIAL IV ONE (08:10)
[2019-01-21] MEDS ORDERED: SUGAMMADEX SODIUM 200 MG/2 ML VIAL IV ONE (08:10)
[2019-01-21] MEDS ORDERED: SCOPOLAMINE 1 PATCH PATCH TOPICAL ONE (08:14)
[2019-01-21] MEDS ORDERED: ePHEDrine 50 MG/ML AMPUL IV PRN (10:35)
[2019-01-21] MEDS ORDERED: ATROPINE SULFATE 0.4 MG/ML VIAL IV PRN (10:35)
[2019-01-21] MEDS ORDERED: IPRATROPIUM/ALBUTEROL 3 ML AMPUL.NEB NEB PRN (10:35)
[2019-01-21] MEDS ORDERED: METHOCARBAMOL 1,000 MG/10 ML VIAL IV PRN (10:35)
[2019-01-21] MEDS ORDERED: KETOROLAC 15 MG/ML VIAL IV PRN (10:35)
[2019-01-21] MEDS ORDERED: MEPERIDINE 25 MG/ML SYRINGE IV PRN (10:35)
[2019-01-21] MEDS ORDERED: PROMETHAZINE 25 MG/ML VIAL IV PRN (10:35)
[2019-01-21] MEDS ORDERED: fentaNYL 100 MCG/2 ML VIAL IV PRN (10:35)
[2019-01-21] MEDS ORDERED: METOPROLOL TARTRATE 5 MG/5 ML VIAL IV PRN (10:35)
[2019-01-21] MEDS ORDERED: FLUMAZENIL 0.1 MG/ML ML IV PRN (10:35)
[2019-01-21] MEDS ORDERED: NALOXONE HCL 0.4 MG/ML VIAL IV PRN (10:35)
[2019-01-21] MEDS ORDERED: ONDANSETRON 4 MG/2 ML VIAL IV PRN (10:35)
[2019-01-21] MEDS ORDERED: diphenhydrAMINE 50 MG/ML VIAL IV PRN (10:35)
[2019-01-21] MEDS ORDERED: LACTATED RINGERS 1,000 ML IV SCH (10:45)
[2019-01-21] MEDS ORDERED: cefOXitin 2 GM VIAL IV ONE (10:49)
[2019-01-21] MEDS ORDERED: metroNIDAZOLE 500 MG/100 ML BAG IV ONE (10:50)
--- NOTE | 2019-01-21 12:29 | Brief Operative Note ---
Date of procedure: 01/21/19 Pre-op diagnosis: colostomy status Post-op diagnosis: other (colostomy status) Procedure: colostomy closure Grafts/Implants: No ([id number]) Anesthesia: GETA Findings: healed inflammatory process Complications: none Surgeon: Jakob Oneill Specimens Removed/Pathology: none sent (colostomy end) Condition: stable Disposition: PACU
[2019-01-21] MEDS ORDERED: ACETAMINOPHEN 1,000 MG/100 ML BOTTLE IV PRN (12:38)
[2019-01-21] MEDS ORDERED: ACETAMINOPHEN 1,000 MG in PREMIX 1 BAG IV SCH (12:45)
[2019-01-21] MEDS: 0.9 % SODIUM CHLORIDE 1,000 ML IV SCH (14:00)
[2019-01-21] MEDS: 0.9 % SODIUM CHLORIDE 10 ML SYRINGE IV SCH ×2 (14:45→22:06)
[2019-01-21] MEDS: HYDROmorphone 2 MG/ML VIAL IV PRN ×3 (15:15→23:36)
[2019-01-21] MEDS: ACETAMINOPHEN 1,000 MG/100 ML BOTTLE IV SCH ×2 (15:23→19:26)
[2019-01-21] MEDS: PIPERACILLIN SODIUM/TAZOBACTAM 3.375 GM in DEXTROSE 5% IN WATER 50 ML IV SCH ×2 (18:12→23:17)
[2019-01-22] MEDS: ACETAMINOPHEN 1,000 MG/100 ML BOTTLE IV SCH ×4 (01:55→20:24)
[2019-01-22] MEDS: 0.9 % SODIUM CHLORIDE 1,000 ML IV SCH ×2 (02:01→16:25)
[2019-01-22] MEDS: HYDROmorphone 2 MG/ML VIAL IV PRN ×3 (04:54→17:05)
[2019-01-22] MEDS: PIPERACILLIN SODIUM/TAZOBACTAM 3.375 GM in DEXTROSE 5% IN WATER 50 ML IV SCH (04:55)
[2019-01-22] MEDS: 0.9 % SODIUM CHLORIDE 10 ML SYRINGE IV SCH ×3 (05:58→20:35)
--- NOTE | 2019-01-22 11:18 | General Surgery Progress Note ---
Subjective Patient reports: feels better, pain is less, no flatus, no bowel movement, afebrile Narrative: Note initiated : 01/22/19 at 11:16 am Service Date, if different from initiated Date: [] Patient: Shilpa Soto 74 y/o F admitted on 01/21/19 for Colostomy Takedown. Chief Complaint: [patient is doing well. She has moderate pain but she is advised to use her pain medication and to become more ambulatory. She has not had flatus or bowel movement. She denies nausea.] Objective Temp Pulse Resp BP Pulse Ox 98.7 F 71 16 129/69 97 01/22/19 08:00 01/22/19 04:00 01/22/19 08:00 01/22/19 08:00 01/22/19 08:00 - Additional Data Intake & Output - Last 24 hours: Intake & Output 01/20/19 01/21/19 01/22/19 01/23/19 05:59 05:59 05:59 05:59 Intake Total 8451 100 Output Total 1250 Balance 7201 100 Weight 188 lb 8 oz 190 lb 190 lb - General physical appearance well developed, well nourished, moderate distress, moderate pain - Eyes PERRL, normal ocular movement - ENT normal pinna, normal nares, normal mucosa, no hearing loss, no congestion - Neck no masses, no bruits, trachea midline, no lymphadenopathy, no venous distension - Respiratory normal expansion, normal respiratory effort, clear to auscultation - Cardiovascular Cardiovascular exam: Present: normal rate and rhythm, RRR, +S1, +S2. Absent: JVD, tachycardia - Abdomen tender (diffuse tenderness due to operative incisions; active bowel sounds; ARNEL drainage is serous) - Integumentary no rash, no growths, no abnormal pigmentation - Neurologic normal coordination, normal sensation - Musculoskeletal normal gait, normal posture - Psychiatric oriented to time, oriented to person, oriented to place, speech is normal, memory intact - Labs 01/15/19 16:28 01/15/19 16:28 Assessment and Plan (1) Status post colostomy takedown Status: Acute Assessment and plan: Encourage patient to ambulate. Check a.m. labs Current Visit: Yes - Time Spent With Patient Total time spent is greater than 50% in coordination of care (as documented) at patient's floor/unit and/or counseling patient:
[2019-01-23] MEDS: ACETAMINOPHEN 1,000 MG/100 ML BOTTLE IV SCH ×4 (00:52→19:04)
[2019-01-23 05:45] LABS: Basophils # (Auto) 0 K/mcL (0.0-0.3); Basophils % (Auto) 0.1 % (0.0-2.0); Eosinophils # (Auto) 0.1 K/mcL (0.0-0.7); Eosinophils % (Auto) 0.5 % (0.0-7.0); Lymphocytes # (Auto) 1.6 K/mcL (1.5-4.8); Lymphocytes % (Auto) 11.5 % (15.5-49.0); Mean Cell Volume 90.7 fL (80.0-100.0); Mean Corpuscular HGB Conc 33.3 g/dL (31.0-36.0); Monocytes # (Auto) 1.1 K/mcL (0.1-0.9); Monocytes % (Auto) 7.9 % (1.0-12.0); Platelet Count 192 K/mcL (140-440); RBC 3.77 M/mcL (4.00-5.20); Red Cell Distribution Width 14.1 % (11.5-14.5)
[2019-01-23] MEDS: 0.9 % SODIUM CHLORIDE 1,000 ML IV SCH ×2 (06:04→17:30)
[2019-01-23] MEDS: 0.9 % SODIUM CHLORIDE 10 ML SYRINGE IV SCH ×3 (06:05→21:02)
[2019-01-23 06:17] LABS: ALT/SGPT 17 U/l (0-40); Albumin 3.2 gm/dL (3.2-5.2); Alkaline Phosphatase 75 U/L (39-117); Bilirubin,Direct < 0.2 mg/dL (0.0-0.3); Blood Urea Nitrogen 9 mg/dl (8-23); Gamma Glutamyl Transpeptidase 14 U/L (5-36); Uric Acid 5.2 mg/dL (2.5-8.0)
[2019-01-23] MEDS: HYDROmorphone 2 MG/ML VIAL IV PRN ×2 (10:12→21:02)
--- NOTE | 2019-01-23 15:34 | General Surgery Progress Note ---
Subjective Patient reports: feels better, pain is less, no flatus, no bowel movement, afebrile Narrative: Note initiated : 01/23/19 at 3:33 pm Service Date, if different from initiated Date: [] Patient: Shilpa Soto 74 y/o F admitted on 01/21/19 for Colostomy Takedown. Chief Complaint: [Patient is doing well. She still has not had flatus yet. NG output is still significantly increased. She denies nausea.] White blood count is 13.5. Hemoglobin is 11.4. Phosphorus 2.2, magnesium 1.7, potassium 3.3. Objective Temp Pulse Resp BP Pulse Ox 98.6 F 80 18 130/68 94 01/23/19 15:20 01/23/19 03:47 01/23/19 15:20 01/23/19 15:20 01/23/19 15:20 - Additional Data Intake & Output - Last 24 hours: Intake & Output 01/21/19 01/22/19 01/23/19 01/24/19 05:59 05:59 05:59 05:59 Intake Total 8451 2780 380 Output Total 1250 3800 1535 Balance 7201 -1020 -1155 Weight 188 lb 8 oz 190 lb 188 lb 8 oz - General physical appearance well developed, well nourished, no distress - Eyes PERRL, normal ocular movement - ENT normal pinna, normal nares, normal mucosa, no hearing loss, no congestion - Neck no masses, no bruits, trachea midline, no lymphadenopathy, no venous distension - Respiratory normal expansion, normal respiratory effort, clear to auscultation - Cardiovascular Cardiovascular exam: Present: normal rate and rhythm, RRR, +S1, +S2. Absent: JVD, tachycardia - Abdomen tender (mild incisional tenderness; good active bowel sounds; incision looks good) - Integumentary no rash, no growths, no abnormal pigmentation - Neurologic normal coordination, normal sensation - Musculoskeletal normal gait, normal posture - Psychiatric oriented to time, oriented to person, oriented to place, speech is normal, memory intact - Labs 01/23/19 04:28 01/23/19 04:28 Diabetes panel 01/23/19 Range/Units 04:28 Sodium 140 (133-145) mmol/L Potassium 3.3 (3.3-5.1) mmol/L Chloride 105 (96-108) mmol/L Carbon Dioxide 24 (22-30) mmol/L BUN 9 (8-23) mg/dl Creatinine 0.6 (0.6-1.1) mg/dl Glucose 88 (70-105) mg/dL Calcium 8.7 (8.6-10.4) mg/dl AST 15 (0-37) U/l ALT 17 (0-40) U/l Alkaline Phosphatase 75 (39-117) U/L Total Protein 6.3 (5.9-8.4) gm/dL Albumin 3.2 (3.2-5.2) gm/dL Triglycerides 92 (<150) mg/dl Calcium panel 01/23/19 Range/Units 04:28 Calcium 8.7 (8.6-10.4) mg/dl Phosphorus 2.2 L (2.7-4.5) mg/dL Albumin 3.2 (3.2-5.2) gm/dL Pituitary panel 01/23/19 Range/Units 04:28 Sodium 140 (133-145) mmol/L Potassium 3.3 (3.3-5.1) mmol/L Chloride 105 (96-108) mmol/L Carbon Dioxide 24 (22-30) mmol/L BUN 9 (8-23) mg/dl Creatinine 0.6 (0.6-1.1) mg/dl Glucose 88 (70-105) mg/dL Calcium 8.7 (8.6-10.4) mg/dl Adrenal panel 01/23/19 Range/Units 04:28 Sodium 140 (133-145) mmol/L Potassium 3.3 (3.3-5.1) mmol/L Chloride 105 (96-108) mmol/L Carbon Dioxide 24 (22-30) mmol/L BUN 9 (8-23) mg/dl Creatinine 0.6 (0.6-1.1) mg/dl Glucose 88 (70-105) mg/dL Calcium 8.7 (8.6-10.4) mg/dl Total Bilirubin 0.5 (0.0-1.0) mg/dL AST 15 (0-37) U/l ALT 17 (0-40) U/l Alkaline Phosphatase 75 (39-117) U/L Total Protein 6.3 (5.9-8.4) gm/dL Albumin 3.2 (3.2-5.2) gm/dL Assessment and Plan (1) Status post colostomy takedown Status: Acute Assessment and plan: Encourage patient to ambulate. Check a.m. labs. Replace magnesium and potassium phosphate. Clamp nasogastric tube Current Visit: Yes - Time Spent With Patient Total time spent is greater than 50% in coordination of care (as documented) at patient's floor/unit and/or counseling patient:
[2019-01-23] MEDS ORDERED: MAGNESIUM SULFATE 32.48 MEQ in DEXTROSE 5% IN WATER 50 ML IV ONE (15:37)
[2019-01-23] MEDS ORDERED: MAGNESIUM SULFATE 4 GM/100 ML BAG IV ONE (16:00)
[2019-01-23] MEDS ORDERED: POTASSIUM PHOSPHATE 40 MEQ in DEXTROSE 5% IN WATER 500 ML IV ONE (16:00)
[2019-01-24] MEDS: 0.9 % SODIUM CHLORIDE 1,000 ML IV SCH ×3 (01:17→16:48)
[2019-01-24] MEDS: ACETAMINOPHEN 1,000 MG/100 ML BOTTLE IV SCH ×4 (01:41→19:53)
[2019-01-24 05:44] LABS: Basophils # (Auto) 0 K/mcL (0.0-0.3); Basophils % (Auto) 0.3 % (0.0-2.0); Eosinophils # (Auto) 0.2 K/mcL (0.0-0.7); Eosinophils % (Auto) 1.5 % (0.0-7.0); Granulocytes % (Auto) 79.1 % (38.0-78.0); Lymphocytes # (Auto) 1.2 K/mcL (1.5-4.8); Lymphocytes % (Auto) 12.1 % (15.5-49.0); Mean Cell Volume 91.3 fL (80.0-100.0); Monocytes # (Auto) 0.7 K/mcL (0.1-0.9); Platelet Count 199 K/mcL (140-440); RBC 3.69 M/mcL (4.00-5.20)
[2019-01-24 05:54] LABS: ALT/SGPT 13 U/l (0-40); Albumin 3.1 gm/dL (3.2-5.2); Albumin/Globulin Ratio 0.9 (1.0-2.3); Alkaline Phosphatase 115 U/L (39-117); Bilirubin,Direct < 0.2 mg/dL (0.0-0.3); Blood Urea Nitrogen 9 mg/dl (8-23); Gamma Glutamyl Transpeptidase 13 U/L (5-36); Uric Acid 5.1 mg/dL (2.5-8.0)
[2019-01-24] MEDS: 0.9 % SODIUM CHLORIDE 10 ML SYRINGE IV SCH ×2 (07:38→16:48)
--- NOTE | 2019-01-24 14:55 | General Surgery Progress Note ---
Subjective Patient reports: feels better, pain is less, flatus, no bowel movement, afebrile Narrative: Note initiated : 01/24/19 at 2:53 pm Service Date, if different from initiated Date: [] Patient: Shilpa Soto 74 y/o F admitted on 01/21/19 for Colostomy Takedown. Chief Complaint: [patient is doing well. She had some beginning of flatus. Last evening and has had more today. Nasogastric tube has been discontinued. She is otherwise stable.] Objective Temp Pulse Resp BP Pulse Ox 98.5 F 79 18 154/80 93 01/24/19 12:00 01/24/19 04:00 01/24/19 12:00 01/24/19 12:00 01/24/19 12:00 - Additional Data Intake & Output - Last 24 hours: Intake & Output 01/22/19 01/23/19 01/24/19 01/25/19 05:59 05:59 05:59 05:59 Intake Total 8451 2780 2189.0909 100 Output Total 1250 3800 2250 150 Balance 7201 -1020 -60.9091 -50 Weight 190 lb 188 lb 8 oz 186 lb - General physical appearance well developed, well nourished, no distress - Eyes PERRL, normal ocular movement - ENT normal pinna, normal nares, normal mucosa, no hearing loss, no congestion - Neck no masses, no bruits, trachea midline, no lymphadenopathy, no venous distension - Respiratory normal expansion, normal respiratory effort, clear to auscultation - Cardiovascular Cardiovascular exam: Present: normal rate and rhythm, RRR, +S1, +S2. Absent: JVD, tachycardia - Abdomen soft, non tender, bowel sounds (good active bowel sounds), surgical scars (. S urgical incision looks good), distended (. No distention noted) - Integumentary no rash, no growths, no abnormal pigmentation - Neurologic normal coordination, normal sensation - Musculoskeletal normal gait, normal posture - Psychiatric oriented to time, oriented to person, oriented to place, speech is normal, memory intact - Labs 01/24/19 04:23 01/24/19 04:23 Diabetes panel 01/24/19 Range/Units 04:23 Sodium 143 (133-145) mmol/L Potassium 3.4 (3.3-5.1) mmol/L Chloride 106 (96-108) mmol/L Carbon Dioxide 25 (22-30) mmol/L BUN 9 (8-23) mg/dl Creatinine 0.5 L (0.6-1.1) mg/dl Glucose 105 (70-105) mg/dL Calcium 8.4 L (8.6-10.4) mg/dl AST 11 (0-37) U/l ALT 13 (0-40) U/l Alkaline Phosphatase 115 (39-117) U/L Total Protein 6.6 (5.9-8.4) gm/dL Albumin 3.1 L (3.2-5.2) gm/dL Triglycerides 107 (<150) mg/dl Calcium panel 01/24/19 Range/Units 04:23 Calcium 8.4 L (8.6-10.4) mg/dl Phosphorus 2.4 L (2.7-4.5) mg/dL Albumin 3.1 L (3.2-5.2) gm/dL Pituitary panel 01/24/19 Range/Units 04:23 Sodium 143 (133-145) mmol/L Potassium 3.4 (3.3-5.1) mmol/L Chloride 106 (96-108) mmol/L Carbon Dioxide 25 (22-30) mmol/L BUN 9 (8-23) mg/dl Creatinine 0.5 L (0.6-1.1) mg/dl Glucose 105 (70-105) mg/dL Calcium 8.4 L (8.6-10.4) mg/dl Adrenal panel 01/24/19 Range/Units 04:23 Sodium 143 (133-145) mmol/L Potassium 3.4 (3.3-5.1) mmol/L Chloride 106 (96-108) mmol/L Carbon Dioxide 25 (22-30) mmol/L BUN 9 (8-23) mg/dl Creatinine 0.5 L (0.6-1.1) mg/dl Glucose 105 (70-105) mg/dL Calcium 8.4 L (8.6-10.4) mg/dl Total Bilirubin 0.3 (0.0-1.0) mg/dL AST 11 (0-37) U/l ALT 13 (0-40) U/l Alkaline Phosphatase 115 (39-117) U/L Total Protein 6.6 (5.9-8.4) gm/dL Albumin 3.1 L (3.2-5.2) gm/dL Assessment and Plan (1) Status post colostomy takedown Status: Acute Assessment and plan: Encourage patient to ambulate. Check a.m. labs. Replace magnesium and potassium phosphate. Discontinue nasogastric tube. Liquid diet Current Visit: Yes - Time Spent With Patient Total time spent is greater than 50% in coordination of care (as documented) at patient's floor/unit and/or counseling patient:
[2019-01-25] MEDS: 0.9 % SODIUM CHLORIDE 10 ML SYRINGE IV SCH ×4 (00:06→20:55)
[2019-01-25] MEDS: ACETAMINOPHEN 1,000 MG/100 ML BOTTLE IV SCH ×4 (01:39→20:50)
[2019-01-25] MEDS: 0.9 % SODIUM CHLORIDE 1,000 ML IV SCH ×2 (01:40→09:53)
--- NOTE | 2019-01-25 10:36 | General Surgery Progress Note ---
Subjective Patient reports: feels better, pain is less, tolerating liquids well, flatus, bowel movement, afebrile Narrative: Note initiated : 01/25/19 at 10:34 am Service Date, if different from initiated Date: [] Patient: Shilpa Soto 74 y/o F admitted on 01/21/19 for Colostomy Takedown. Chief Complaint: [patient is doing well. She had bowel movements . Last night and had a large bowel movement today. She is having copious passage of flatus. She denies nausea. She has been afebrile.] Objective Temp Pulse Resp BP Pulse Ox 97.9 F 74 16 185/88 96 01/25/19 08:00 01/25/19 04:00 01/25/19 08:00 01/25/19 08:00 01/25/19 08:00 - Additional Data Intake & Output - Last 24 hours: Intake & Output 01/23/19 01/24/19 01/25/19 01/26/19 05:59 05:59 05:59 05:59 Intake Total 2780 2189.0909 2840 1700 Output Total 3800 2250 1630 430 Balance -1020 -60.9091 1210 1270 Weight 188 lb 8 oz 186 lb 184 lb - General physical appearance well developed, well nourished, no distress - Eyes PERRL, normal ocular movement - ENT normal pinna, normal nares, normal mucosa, no hearing loss, no congestion - Neck no masses, no bruits, trachea midline, no lymphadenopathy, no venous distension - Respiratory normal expansion, normal respiratory effort, clear to auscultation - Cardiovascular Cardiovascular exam: Present: normal rate and rhythm, RRR, +S1, +S2. Absent: JVD, tachycardia - Abdomen soft, non tender, bowel sounds (with active bowel sounds), surgical scars (. Incision is well-healed), distended (. No distention noted) - Integumentary no rash, no growths, no abnormal pigmentation - Neurologic normal coordination (. Regardless of what is), normal sensation - Musculoskeletal normal gait, normal posture - Psychiatric oriented to time, oriented to person, oriented to place, speech is normal, memory intact - Labs 01/24/19 04:23 01/24/19 04:23 Assessment and Plan (1) Status post colostomy takedown Status: Acute Assessment and plan: Advanced diet. saline lock IV. Discontinue ARNEL drain and change Tegaderm dressing. Possible discharge home tomorrow Current Visit: Yes - Time Spent With Patient Total time spent is greater than 50% in coordination of care (as documented) at patient's floor/unit and/or counseling patient:
[2019-01-26] MEDS: ACETAMINOPHEN 1,000 MG/100 ML BOTTLE IV SCH ×3 (01:11→15:02)
[2019-01-26 05:12] LABS: Basophils # (Auto) 0 K/mcL (0.0-0.3); Basophils % (Auto) 0.2 % (0.0-2.0); Eosinophils # (Auto) 0.2 K/mcL (0.0-0.7); Eosinophils % (Auto) 3.1 % (0.0-7.0); Granulocytes % (Auto) 67.4 % (38.0-78.0); Lymphocytes # (Auto) 1.3 K/mcL (1.5-4.8); Lymphocytes % (Auto) 18.9 % (15.5-49.0); Mean Cell Volume 90.2 fL (80.0-100.0); Mean Corpuscular HGB Conc 33.1 g/dL (31.0-36.0); Monocytes # (Auto) 0.7 K/mcL (0.1-0.9); Monocytes % (Auto) 10.4 % (1.0-12.0); Platelet Count 246 K/mcL (140-440); RBC 3.67 M/mcL (4.00-5.20); Red Cell Distribution Width 13.6 % (11.5-14.5)
[2019-01-26] MEDS: 0.9 % SODIUM CHLORIDE 10 ML SYRINGE IV SCH ×2 (05:36→15:03)
--- NOTE | 2019-01-26 17:09 | Discharge Summary ---
Providers - Providers Patient information: Note initiated : 01/26/19 at 5:08 pm Service Date, if different from initiated Date: [] Patient: Shilpa Soto 74 y/o F admitted on 01/21/19 for Colostomy Takedown. Chief Complaint: [] Date of admission: 01/21/19 Discharge date: 01/26/19 Attending physician: Jakob Oneill Hospitalization Hospital course: 74-year-old female who is status post colostomy closure on 21 January. The patient has been followed and has progressed very well. She started having flatus on the third day in her diet has been advanced. She is now tolerating a soft diet and is having regular bowel movements and flatus. Her incisions are healing uneventfully. She has no complaints and is stable for discharge Discharge diagnosis: colostomy status Reason for admission: colostomy takedown Procedures: Colostomy takedown Pertinent studies/significant findings: None Complications: None Exam Temp Pulse Resp BP Pulse Ox 98.4 F 69 16 142/82 94 01/26/19 15:03 01/26/19 03:40 01/26/19 15:03 01/26/19 15:03 01/26/19 15:03 - General physical appearance well developed, well nourished, no distress - Eyes PERRL, normal ocular movement - ENT normal pinna, normal nares, normal mucosa, no hearing loss, no congestion - Head Head exam IM: Present: atraumatic, normocephalic - Neck no masses, no bruits, trachea midline, no lymphadenopathy, no venous distension - Cardiovascular Cardiovascular exam IM: Present: normal rate and rhythm - Respiratory normal expansion, normal respiratory effort, clear to percussion, clear to auscultation - Abdomen Abdomen: Present: soft, tender (minimal incisional tenderness), bowel sounds, surgical scars (midline incision and stoma site healing uneventfully) Hernia: Present: none - Genitourinary Present: normal external genitalia - Integumentary Present: no rash, no growths, no abnormal pigmentation - Neurologic Present: normal coordination, normal sensation - Musculoskeletal Present: normal gait, normal posture - Psychiatric Present: oriented to time, oriented to person, oriented to place, speech is normal, memory intact Discharge Plan - Patient/Caregiver Discharge Instructions Activity: increase activity as tolerated, other (no lifting over 20 pounds) Diet: Regular Diet Additional Instructions: Leave Tegaderm in place until you return to the office - Follow up Plan Follow up with: Jakob Oneill MD [Physician] - 02/05/19 11:15 am Disposition: Home, Self-Care Prognosis: Good Rehab Potential: Good I certify that the patient requires SNF services.: No Overall status at discharge: patient is progressing back to baseline Pending Studies Resuscitation Status Full Code Diet Full Liquid Diet Start Sun January 25 1016 Hydromorphone HCl (Dilaudid) 1 mg IV Q2HP PRN PRN Reason: PAIN LEVEL > 6 Last Admin: 01/23/19 21:02 Dose: 1 mg Documented by: Admin: 01/23/19 10:12 Dose: 1 mg Documented by: [email or web address] Admin: 01/22/19 17:05 Dose: 1 mg Documented by: Admin: 01/22/19 12:12 Dose: 1 mg Documented by: Admin: 01/22/19 04:54 Dose: 1 mg Documented by: Admin: 01/21/19 23:36 Dose: 1 mg Documented by: Admin: 01/21/19 18:30 Dose: 1 mg Documented by: Admin: 01/21/19 15:15 Dose: 1 mg Documented by: WILL Acetaminophen ([facility]) 1,000 mg in 100 mls @ 200 mls/hr IV Q6H CHINO Last Admin: 01/26/19 15:02 Dose: 200 mls/hr Documented by: [email or web address] Infusion: 01/26/19 15:02 Dose: 0 mls/hr Documented by: [email or web address] Infusion: 01/26/19 07:25 Dose: 0 mls/hr Documented by: [email or web address] Admin: 01/26/19 07:22 Dose: 200 mls/hr Documented by: [email or web address] Infusion: 01/26/19 01:50 Dose: 0 mls/hr Documented by: Admin: 01/26/19 01:11 Dose: 200 mls/hr Documented by: Infusion: 01/25/19 21:30 Dose: 0 mls/hr Documented by: Admin: 01/25/19 20:50 Dose: 200 mls/hr Documented by: Infusion: 01/25/19 12:50 Dose: 200 mls/hr Documented by: [email or web address] Admin: 01/25/19 12:20 Dose: 200 mls/hr Documented by: [email or web address] Infusion: 01/25/19 07:39 Dose: 200 mls/hr Documented by: [email or web address] Admin: 01/25/19 07:09 Dose: 200 mls/hr Documented by: [email or web address] Infusion: 01/25/19 02:10 Dose: 0 mls/hr Documented by: Admin: 01/25/19 01:39 Dose: 200 mls/hr Documented by: Infusion: 01/24/19 20:30 Dose: 0 mls/hr Documented by: Admin: 01/24/19 19:53 Dose: 200 mls/hr Documented by: Infusion: 01/24/19 14:25 Dose: 200 mls/hr Documented by: Admin: 01/24/19 13:55 Dose: 200 mls/hr Documented by: [email or web address] Infusion: 01/24/19 08:04 Dose: 200 mls/hr Documented by: [email or web address] Admin: 01/24/19 07:34 Dose: 200 mls/hr Documented by: [email or web address] Infusion: 01/24/19 02:15 Dose: 0 mls/hr Documented by: Admin: 01/24/19 01:41 Dose: 200 mls/hr Documented by: Infusion: 01/23/19 20:35 Dose: 0 mls/hr Documented by: Admin: 01/23/19 19:04 Dose: 200 mls/hr Documented by: Infusion: 01/23/19 13:30 Dose: 0 mls/hr Documented by: [email or web address] Admin: 01/23/19 12:52 Dose: 200 mls/hr Documented by: [email or web address] Infusion: 01/23/19 07:50 Dose: 0 mls/hr Documented by: [email or web address] Admin: 01/23/19 07:17 Dose: 200 mls/hr Documented by: [email or web address] Infusion: 01/23/19 01:45 Dose: 0 mls/hr Documented by: Admin: 01/23/19 00:52 Dose: 200 mls/hr Documented by: Infusion: 01/22/19 21:00 Dose: 0 mls/hr Documented by: Admin: 01/22/19 20:24 Dose: 200 mls/hr Documented by: Infusion: 01/22/19 12:45 Dose: 0 mls/hr Documented by: Admin: 01/22/19 12:12 Dose: 200 mls/hr Documented by: Infusion: 01/22/19 08:44 Dose: 0 mls/hr Documented by: Admin: 01/22/19 08:14 Dose: 200 mls/hr Documented by: Infusion: 01/22/19 03:34 Dose: 0 mls/hr Documented by: Admin: 01/22/19 01:55 Dose: 200 mls/hr Documented by: Infusion: 01/21/19 22:05 Dose: 0 mls/hr Documented by: Admin: 01/21/19 19:26 Dose: 200 mls/hr Documented by: Infusion: 01/21/19 15:53 Dose: 200 mls/hr Documented by: Admin: 01/21/19 15:23 Dose: 200 mls/hr Documented by: WILL Sodium Chloride (Saline Flush) 10 ml IV Q8 CHINO Last Admin: 01/26/19 15:03 Dose: 10 ml Documented by: [email or web address] Admin: 01/26/19 05:36 Dose: 10 ml Documented by: Admin: 01/25/19 20:55 Dose: 10 ml Documented by: Admin: 01/25/19 13:00 Dose: Not Given Documented by: [email or web address] Admin: 01/25/19 05:20 Dose: 10 ml Documented by: Admin: 01/25/19 00:06 Dose: 10 ml Documented by: Admin: 01/24/19 16:48 Dose: 10 ml Documented by: [email or web address] Admin: 01/24/19 07:38 Dose: 10 ml Documented by: [email or web address] Admin: 01/23/19 21:02 Dose: 10 ml Documented by: Admin: 01/23/19 14:40 Dose: 10 ml Documented by: [email or web address] Admin: 01/23/19 06:05 Dose: 10 ml Documented by: Admin: 01/22/19 20:35 Dose: 10 ml Documented by: Admin: 01/22/19 12:13 Dose: 10 ml Documented by: Admin: 01/22/19 05:58 Dose: Not Given Documented by: Admin: 01/21/19 22:06 Dose: Not Given Documented by: Admin: 01/21/19 14:45 Dose: Not Given Documented by: WILL Shift Summary 01/26/19 04:29 Shift Summary by Mee Das Patient alert and oriented x4. Given scheduled Ofirmev. Pain 2-3/10 when coughing. Tolerating full liquid diet. No nausea. Midline and left incision- arpit, tegaderm CDI. RLQ previous ARNEL site-gauze and tegaderm CDI. Active bowel tones. Passing flatus,no BM this shift. Ambulated in hallway last night 500ft. Up ad sanna. Voids adequately to the BR. IV on RFA and LFA both saline locked. Had sponge bath this morning. Linen changed.BP 150-160's mmHg/80's mmHg. Possible discharge today. Initialized on 01/26/19 04:29 - END OF NOTE
--- NOTE | 2019-01-28 11:30 | Operative Note ---
DATE OF OPERATION: 01/21/2019 PREOPERATIVE DIAGNOSIS: Colostomy status. POSTOPERATIVE DIAGNOSIS: Colostomy status. PROCEDURE: Colostomy takedown and closure. SURGEON: Jakob Oneill M.D. FINDINGS: Healed inflammatory process with moderate scarring. DESCRIPTION OF PROCEDURE: Under general anesthesia, the patient's abdomen was prepped and draped in a sterile field. Timeout procedure was carried out as per protocol. The colostomy opening was closed with running locking 2-0 silk. Repeat prepping and draping was carried out with placement of Ioban dressing. Midline incision was made. Peritoneal cavity was entered. The rectal stump was identified by the blue Prolene suture. It was dissected free and did not have any significant inflammation. The proximal sigmoid was dissected up to the abdominal wall. It was divided at the level of the abdominal wall using a Contour stapler. The descending colon was mobilized up to the splenic flexure. The colon then easily reached the pelvis. End-to-side anastomosis was performed using outer layer of Prolene and a layer of running locking 2-0 Monocryl, and an anterior outlay of running 2-0 Prolene. The mesenteric defect was closed with interrupted 2-0 Vicryl. The stoma was excised from the abdominal wall using electrocautery. The muscle and fascia stoma opening were closed with interrupted #1 Prolene. Subcutaneous tissue and stoma site was closed with running 2-0 Vicryl. Sponge, needle, instrument and blade counts were verified as correct. A nasogastric tube was positioned in the stomach. The fascia and peritoneum were closed with running #1 Prolene. Subcutaneous tissue was closed with 2-0 Vicryl. Skin in the midline and the stoma site was closed with arpit. Tegaderm dressings were placed. The patient tolerated the procedure well. She was awakened, transferred to a bed, and taken to the postanesthetic care unit in stable, satisfactory condition. LCS:rogers Job ID: [id number] Doc ID: [id number] Jakob Oneill M.D.
== END 2019-01-26 18:18 | disposition home or self-care (01) | DRG 331 ==
LOC: MEDSUR 04:42
PROVIDERS: ADMIT Family Medicine Adult Medicine; ATTEND Family Medicine Adult Medicine